=== PATIENT | male | born 1930 | race Caucasian/White ===

== ENCOUNTER 2017-07-03 06:51 | Observation (INO) | payer OTHER ==
[2017-06-19 15:21] VITALS: BMI 21.0
[2017-06-19 15:39] VITALS: Ht 167.6 cm; Wt 59.1 kg
[2017-07-03] VITALS (10 sets, daily range): BP systolic 125–221; BP diastolic 61–99; PULSE 57–88; TEMP 36.3–36.8; O2SAT 95–100
[~2017-07-03] VITALS: Ht 167.6 cm; Wt 59.1 kg
[~2017-07-03 06:51] MED LIST: ASPCH81X PO; CEFAZOLIN 2000 MG/60 ML D5W IV SCH; COLC0.6T54 PO; FEBU40TA PO; FERR1TAB13 PO; HYDR25CA PO; IMD/2 PO; LACTATED RINGER'S 1000ML 1,000 ML IV SCH; LISI20TA3 PO; METO50TA16 PO; NIFE30TA83 PO; PANT40TA PO
[2017-07-03] MEDS ORDERED: LIDOCAINE HCL 2% 2 ML VIAL (20MG/ML) ONE (07:32)
[2017-07-03] MEDS ORDERED: PROPOFOL IV EMULSION 10 MG/ML 20 ML VIAL IV ONE (07:32)
[2017-07-03] MEDS ORDERED: FENTANYL CITRATE INJ 50 MCG/1 ML 2 ML VIAL ONE (07:33)
[2017-07-03] MEDS ORDERED: BUPIVACAINE 0.5 % 5 MG/1 ML MPF 30ML VIAL ONE (08:54)
--- NOTE | 2017-07-03 08:58 | History & Physical Bridge Note ---
H&P Re-Evaluation Bridge Note: I have examined the patient, reviewed the History & Physical and in the interval since the performance of the History & Physical I have noted the following changes of clinical significance: Patient did not take his metoprolol or nifedipine this AM, BP 200's/90's, spoke with anesthesia, okay to continue with case. No other changes noted
[2017-07-03] MEDS ORDERED: FENTANYL CITRATE INJ 50 MCG/1 ML 2 ML VIAL IV PRN (09:00)
[2017-07-03] MEDS ORDERED: ATROPINE SULFATE 0.1 MG/ML 5ML SYR IV PRN (09:00)
[2017-07-03] MEDS ORDERED: EpHEDrine SULFATE INJ 50 MG/ML AMP IV PRN (09:00)
[2017-07-03] MEDS ORDERED: ONDANSETRON INJ 2 MG/ML 2 ML VIAL IV PRN (09:00)
[2017-07-03] MEDS ORDERED: METOPROLOL TARTRATE 1 MG/ML VIAL ONE (09:29)
[2017-07-03] MEDS ORDERED: LACTATED RINGER'S 1000ML 1,000 ML IV SCH (10:46)
--- NOTE | 2017-07-03 10:57 | [facility] Post Operative Brief Note ---
Immediate Operative Summary Operative Date Jul 03, 2017. Pre-Operative Diagnosis Left inguinal hernia Post-Operative Diagnosis Left inguinal hernia Procedure(s) Performed Open Left Inguinal Hernia Repair Surgeon Dr. Rodríguez Sales Team Leader Surgeon(s) Coni Nunez PA-C Estimated Blood Loss 4mL Findings large indirect hernia, polypropylene plug and patch sown into place. Specimens none per surgeon Anesthesia GETA Complication(s) None Disposition Recovery Room / PACU
[2017-07-03] MEDS ORDERED: KETOROLAC TROMETHAMINE 15 MG/ML VIAL IV PRN (11:00)
[2017-07-03] MEDS ORDERED: hydrOXYzine HCL 25 MG TAB PO PRN (11:00)
[2017-07-03] MEDS ORDERED: MoRPHine SULFATE 2 MG/ML CARP IV PRN (11:00)
[2017-07-03] MEDS ORDERED: PANTOprazole SOD 40 MG TAB PO PRN (11:00)
--- NOTE | 2017-07-03 11:04 | [facility] Operative Report ---
Operative Report Operative Date Jul 03, 2017. Pre-Operative Diagnosis Left inguinal hernia Post-Operative Diagnosis left inguinal hernia Procedure(s) Performed left inguinal hernia repair with mesh Surgeon Dr. Rodríguez Computer Hardware Technician Surgeon(s) Coni Nunez PA-C Estimated Blood Loss 4mL Findings large indirect hernia, polypropylene plug and patch sown into place. Specimens none per surgeon Drains None Anesthesia GETA Complication(s) None Disposition Recovery Room / PACU Indications 87 year old male with symptomatic left inguinal hernia, plan for left inguinal hernia repair. The risks of the procedure were discussed, all questions were answered, and the patient agreed to proceed with surgery as planned. Description of Procedure The patient was properly identified, consented, and taken to the operating room where he was placed in the supine position. General endotracheal anesthesia was induced. SCDs and a safety belt were placed. Preoperative antibiotics were administered. The patient's groins and abdomen were prepped and draped in the standard sterile fashion. A surgical timeout was performed and all parties were in agreement that this was the correct patient and procedure to be performed and we continued as planned. Local anesthetic in the form of 0.5% Marcaine was injected along the proposed incision site. An oblique incision was made in the left groin and deepened down to subcutaneous tissue with electrocautery. The aponeurosis of the external oblique muscle was cleared of investing tissue. A small incision was made in the aponeurosis of the external oblique muscle with a knife and lengthened under direct visualization with Metzenbaum scissors. Flaps were raised cephalad and caudad on the posterior portion of the external oblique. The ilioinguinal nerve was identified divided. The cord structures were circumferentially dissected and encircled with a Hailee drain. A moderate sized indirect hernia was noted. The hernia sac was dissected away from the cord structures, and reduced back into the abdomen. Hemostasis was achieved within the wound. The floor was patulous and weak. A polypropylene plug was placed into the large indirect defect and tacked into place with 0 nurolon sutures. A polypropylene patch mesh was sewn into place using interrupted 0 Nurolon sutures. It was secured to the pubic tubercle medially, the inguinal ligament caudad, and the conjoined tendon cephalad. The aponeurosis of the external oblique was then closed with a running 3-0 Vicryl suture. The internal ring was recreated by securing the tails and could accommodate the tip of the surgeons fifth digit. The wound was irrigated. Mine's fascia was reapproximated with interrupted 3-0 Vicryl suture. The skin was closed with a running 4-0 Monocryl subcuticular suture, and Dermabond was placed over the incision. The patient was extubated in the operating room and taken to the PACU for recovery without apparent incident. All sponge, instrument, and needle counts were correct at the conclusion of the procedure. The patient tolerated the procedure well. I attest to the content of the Intraoperative Record and any orders documented therein. Any exceptions are noted below.
[2017-07-03] MEDS ORDERED: NURSING VERBAL MED ORDER ONE ×3 (11:12→21:15)
[2017-07-03] MEDS ORDERED: IV FLUIDS COMPLETED PRN (11:15)
[2017-07-03] MEDS ORDERED: HydrALAZINE HCL 20 MG/ML VIAL ONE (11:21)
[2017-07-03] MEDS ORDERED: HydrALAZINE HCL 20 MG/ML VIAL IV. ONE (11:45)
--- NOTE | 2017-07-03 12:13 | Anesthesiology Progress Note ---
Anesthesia Post Op Note Date & Time Jul 03, 2017 at 12:13 Vital Signs Pain Intensity: 1 Vital Signs Past 12 Hours Date Time Temp Pulse Resp B/P (MAP) Pulse Ox O2 Delivery O2 Flow Rate FiO2 07/03/17 12:10 36.3 59 16 177/90 100 Nasal Cannula 2 07/03/17 11:55 36.3 57 16 206/91 100 Nasal Cannula 2 07/03/17 11:45 56 16 199/84 100 Nasal Cannula 2 07/03/17 11:35 57 16 204/94 100 Nasal Cannula 3 07/03/17 11:25 58 16 212/96 100 Nasal Cannula 3 07/03/17 11:15 58 16 214/85 100 Oxymask 10 07/03/17 11:05 56 16 182/90 100 Oxymask 10 07/03/17 10:55 55 16 191/90 100 Oxymask 10 07/03/17 10:49 36.5 56 16 190/90 100 Oxymask 10 07/03/17 07:36 36.6 57 18 221/99 (139) 99 Room Air Notes Mental Status: alert / awake / arousable, participated in evaluation Pt Amnestic to Procedure: Yes Nausea / Vomiting: adequately controlled Pain: adequately controlled Airway Patency, RR, SpO2: stable & adequate BP & HR: stable & adequate Hydration State: stable & adequate Anesthetic Complications: no major complications apparent
[2017-07-03] MEDS ORDERED: HydrALAZINE HCL 20 MG/ML VIAL IV. STA (13:41)
[2017-07-03] MEDS ORDERED: HydrALAZINE HCL 20 MG/ML VIAL IV. PRN (13:45)
[2017-07-03] MEDS ORDERED: COLCHICINE 0.6 MG TAB PO SCH (15:00)
[2017-07-03] MEDS ORDERED: LISINOPRIL 20 MG TAB PO ONE (16:00)
[2017-07-03] MEDS: OXYCODONE/ACETAMINOPHEN 5-325 TAB PO PRN (19:07)
[2017-07-03] MEDS: METOPROLOL TARTRATE 50 MG TAB PO SCH (20:28)
--- NOTE | 2017-07-03 20:53 | History and Physical ---
History & Physical Date & Time of Service: Jul 03, 2017 at 20:43 Chief Complaint: Left Inguinal Hernia Primary Care Physician: Elias Mcguire M.D. History of Present Illness Source: patient, family, clinic records, hospital records 87 year old very pleasant male with history of HTN, CKD3, BPH, Gout and other problems noted below, s/p Left Inguinal Hernia Repair. Patient was noted to be hypertensive since this morning. On my exam, patient seen sitting up in bed, comfortable, in good spirits. Denies headache, dizziness, nausea, chest pain, dyspnea, palpitations. Reports some pain on the incision site. Otherwise, no other symptoms. Family History HTN- mother and siblings Social History Smoking Status: Former Smoker Alcohol Use: none Drug Use: none Marital Status: Housing status: lives with family Allergies Coded Allergies: NO KNOWN DRUG ALLERGIES (Verified Allergy, Unknown, none, 07/03/17) Home Medications Scheduled Aspirin (Aspirin Chewable), 81 MG PO 2XWK Colchicine (Colchicine), 0.6 MG PO 3XWK Febuxostat (Uloric), 1 TAB PO QAM Ferrous Sulfate (Kp Ferrous Sulfate), 1 TAB PO QAM Lisinopril (Prinivil), 20 MG PO QAM Metoprolol Tartrate (Lopressor) (Lopressor), 50 MG PO BID Nifedipine Ext Rel (Procardia Xl Ext Rel), 30 MG PO QAM Scheduled PRN Hydroxyzine Pamoate (Vistaril), 1 CAP PO TID PRN for Itching Loperamide Hcl (Imodium), 2 MG PO DIRECTED PRN for Diarrhea Pantoprazole (Protonix), 40 MG PO DAILY PRN for Indigestion Review of Systems Constitutional- no fever; no weight loss Eyes- no acute visual changes ENT- no sinus drainage; no pharyngitis Pulmonary- no cough, no wheezing, no shortness of breath Cardiac- no chest pain, no palpitations, no orthopnea, no dependent edema GI- no nausea, no vomiting, no diarrhea, no melena, no hematochezia - no dysuria, no hematuria Musculoskeletal- no arthralgias, no myalgias Derm- no rashes, no new skin lesions, no changing skin lesions Hematologic- no unusual bruising, no unusual bleeding Lymphatics- no adenopathy Endocrine- no polyuria or polydipsia; no heat or cold intolerance Neuro- no headaches, no focal neurologic symptoms Psych- no anxiety, no depression Physical Exam Vital Signs Date Time Temp Pulse Resp B/P (MAP) Pulse Ox O2 Delivery O2 Flow Rate FiO2 07/03/17 19:22 36.8 88 17 173/69 (103) 95 Room Air 07/03/17 19:15 Room Air 07/03/17 16:32 97 Nasal Cannula 2.0 07/03/17 16:03 74 16 153/71 (98) 97 Nasal Cannula 2.0 07/03/17 14:45 70 15 136/63 (87) 100 07/03/17 13:45 36.3 60 16 192/83 (119) 100 Nasal Cannula 2.0 07/03/17 13:10 61 15 202/87 (125) 100 Nasal Cannula 2.0 07/03/17 12:40 100 Nasal Cannula 2.0 07/03/17 12:40 36.4 59 18 191/70 (110) 100 Nasal Cannula 2.0 07/03/17 12:40 Nasal Cannula 2.0 07/03/17 12:10 36.3 59 16 177/90 100 Nasal Cannula 2 07/03/17 11:55 36.3 57 16 206/91 100 Nasal Cannula 2 07/03/17 11:45 56 16 199/84 100 Nasal Cannula 2 07/03/17 11:35 57 16 204/94 100 Nasal Cannula 3 07/03/17 11:25 58 16 212/96 100 Nasal Cannula 3 07/03/17 11:15 58 16 214/85 100 Oxymask 10 07/03/17 11:05 56 16 182/90 100 Oxymask 10 07/03/17 10:55 55 16 191/90 100 Oxymask 10 07/03/17 10:49 36.5 56 16 190/90 100 Oxymask 10 07/03/17 07:36 36.6 57 18 221/99 (139) 99 Room Air General Appearance: WD/WN, no apparent distress Head: normocephalic, atraumatic Eyes: normal inspection, EOMI, sclerae normal ENT: normal ENT inspection, hearing grossly normal, pharynx normal Neck: supple, no adenopathy, thyroid normal, no JVD, trachea midline Respiratory/Chest: chest non-tender, lungs clear, normal breath sounds, no respiratory distress, no accessory muscle use Cardiovascular: regular rate, rhythm, no edema, no JVD, no murmur Abdomen/GI: normal bowel sounds, non tender, soft, + splenomegaly (incision site: no signs of infection, no discharge noted), + pertinent finding Back: normal inspection, no CVA tenderness Extremities/Musculoskelatal: normal inspection, no calf tenderness, normal capillary refill, no pedal edema, non-tender Neurologic/Psych: receiving associate II-XII nml as tested, no motor/sensory deficits, alert, normal mood/affect, oriented x 3 Skin: normal color, warm/dry, no rash Lymphatic: no adenopathy Diagnostics Laboratory Results Results Past 24 Hours Test 07/03/17 07:39 Range/Units Activated Partial Thromboplast Time 24.7 21.0-31.0 SECONDS Partial Thromboplastin Ratio 1.0 Impression Assessment and Plan 87 year old very pleasant male with history of HTN, CKD3, BPH, Gout and other problems noted below, s/p Left Inguinal Hernia Repair. HYPERTENSIVE URGENCY asymptomatic likely from not being able to take BP medications this morning, in addition to post operative stress and pain on the surgical site -- IV Hydralazine ordered and PRN for systolic bp > 160 -- usual Lisinopril and Metoprolol PO resumed -- will monitor S/P LEFT INGUINAL HERNIA REPAIR -- appears stable otherwise monitor Hg and PRP CKD 3 - PRP tomorrow GOUT - continue Uloric and Colchicine HISTORY OF ANEMIA - monitor Hg Thank you for this consultation. We will follow the patient with you during their hospital stay. You [facility] via pager @ . VTE Prophylaxis VTE Risk Assessment Done? Y/N: Yes Risk Level: Moderate
[2017-07-04] VITALS (9 sets, daily range): BP systolic 119–182; BP diastolic 61–89; PULSE 67–69; TEMP 36.5–36.9; O2SAT 91–94
--- NOTE | 2017-07-04 08:34 | Surgery Progress Note ---
Surgery Progress Note Date of Service Jul 04, 2017. Subjective 87 year old POD#1 s/p open left inguinal hernia repair. Doing well this morning , BP controlled yesterday with IV hydralazine. Scheduled to get all home meds this morning. Eating breakfast, tolerating diet, urinating without difficulty. Pain controlled with meds, ambulating. Wants to go home. Objective Vital Signs: Date Time Temp Pulse Resp B/P (MAP) Pulse Ox O2 Delivery O2 Flow Rate FiO2 07/04/17 07:30 Room Air 07/04/17 07:17 69 20 178/74 (108) 91 Room Air 07/04/17 04:00 36.9 68 16 127/65 (85) 93 Room Air 07/03/17 23:00 36.5 68 18 132/64 (86) 95 Room Air 07/03/17 20:20 81 125/61 (82) 07/03/17 19:22 36.8 88 17 173/69 (103) 95 Room Air 07/03/17 19:15 Room Air 07/03/17 16:32 97 Nasal Cannula 2.0 07/03/17 16:03 74 16 153/71 (98) 97 Nasal Cannula 2.0 07/03/17 14:45 70 15 136/63 (87) 100 07/03/17 13:45 36.3 60 16 192/83 (119) 100 Nasal Cannula 2.0 07/03/17 13:10 61 15 202/87 (125) 100 Nasal Cannula 2.0 07/03/17 12:40 100 Nasal Cannula 2.0 07/03/17 12:40 36.4 59 18 191/70 (110) 100 Nasal Cannula 2.0 07/03/17 12:40 Nasal Cannula 2.0 07/03/17 12:10 36.3 59 16 177/90 100 Nasal Cannula 2 07/03/17 11:55 36.3 57 16 206/91 100 Nasal Cannula 2 07/03/17 11:45 56 16 199/84 100 Nasal Cannula 2 07/03/17 11:35 57 16 204/94 100 Nasal Cannula 3 07/03/17 11:25 58 16 212/96 100 Nasal Cannula 3 07/03/17 11:15 58 16 214/85 100 Oxymask 10 07/03/17 11:05 56 16 182/90 100 Oxymask 10 07/03/17 10:55 55 16 191/90 100 Oxymask 10 07/03/17 10:49 36.5 56 16 190/90 100 Oxymask 10 Abdomen: normal bowel sounds, non tender, non distended, soft, no organomegaly , no pulsatile mass Incision(s): clean, dry, intact, no erythema, no drainage Assessment & Plan POD#1 LIH repair, doing well. Plan: discharge to home when bp okay, likely around lunchtime wound care instructions, activity limitations reviewed follow up in 1-2 weeks in clinic return precautions given call clinic with questions or concerns
[2017-07-04] MEDS ORDERED: FEBUXOSTAT 40 MG TAB PO SCH (09:00)
[2017-07-04] MEDS ORDERED: FERROUS SULFATE 325 MG TAB PO SCH (09:00)
[2017-07-04] MEDS ORDERED: LISINOPRIL 20 MG TAB PO SCH (09:00)
[2017-07-04] MEDS ORDERED: NIFEdipine 30 MG CR TAB PO SCH (09:00)
[2017-07-04] MEDS: OXYCODONE/ACETAMINOPHEN 5-325 TAB PO PRN (09:04)
[2017-07-04] MEDS: METOPROLOL TARTRATE 50 MG TAB PO SCH (09:06)
[2017-07-04] MEDS ORDERED: OXYC-57 PO (11:03)
--- NOTE | 2017-07-04 11:06 | Discharge Instructions ---
Discharge Instructions Date of Service Jul 04, 2017. Admission Reason for Admission: Left Inguinal Hernia Discharge Discharge Diagnosis / Problem: Left Inguinal Hernia Discharge Goals Goal(s): Decrease discomfort, Improve function Activity Recommendations Activity Limitations: as noted below Lifting Limitations: no more than 10 pounds Exercise/Sports Limitations: until after follow-up appointment May Resume Sexual Activity: after follow-up appointment Shower/Bathe: tomorrow Driving or Machine Use: resume 1 day after discharge . Instructions / Follow-Up Instructions / Follow-Up You may resume home medications as prescribed. Please follow-up with Dr. Rodríguez in the office in 1-2 weeks. Please call the office at [phone] to make a follow-up appointment if you do not have one already. Please call the office with any questions or concerns. Current Hospital Diet Patient's current hospital diet: Regular Diet Discharge Diet Recommended Diet: Regular Diet Procedures Procedures Performed: Open Left Inguinal Hernia Repair Pending Studies Studies pending at discharge: no Medical Emergencies . Who to Call and When: Medical Emergencies: If at any time you feel your situation is an emergency, please call 911 immediately. . Non-Emergent Contact Non-Emergency issues call your: Primary Care Provider, Surgeon Call Non-Emergent contact if: temperature is above 101.5, your pain is not controlled, wound has increased drainage, wound has increased redness . "Provider Documentation" section prepared by Coni Nunez. . VTE Core Measure Inpt VTE Proph given/why not?: SCD's [place] Drug Monitoring Program Search Results: patient reviewed within database, no issues identified
--- NOTE | 2017-07-04 11:07 | Anesthesiology Progress Note ---
Anesthesia Post Op Note Date & Time Jul 04, 2017 at 11:07 Vital Signs Pain Intensity: 6.0 Vital Signs Past 12 Hours Date Time Temp Pulse Resp B/P (MAP) Pulse Ox O2 Delivery O2 Flow Rate FiO2 07/04/17 09:48 159/89 (112) 07/04/17 09:20 36.8 07/04/17 07:30 Room Air 07/04/17 07:17 69 20 178/74 (108) 91 Room Air 07/04/17 04:00 36.9 68 16 127/65 (85) 93 Room Air Notes Mental Status: alert / awake / arousable, participated in evaluation Pt Amnestic to Procedure: Yes Nausea / Vomiting: adequately controlled Pain: adequately controlled Airway Patency, RR, SpO2: stable & adequate BP & HR: stable & adequate Hydration State: stable & adequate Anesthetic Complications: no major complications apparent
--- NOTE | 2017-07-04 14:22 | Progress Note ---
Medicine Progress Note Date & Time of Visit: Jul 04, 2017 at 14:16. Subjective seen sitting up in bed, comfortable, in good spirits denies headache, dizziness, chest pain, palpitations denies abdominal pain, nausea no other symptoms states he feels fine and would like to be discharged today Objective Last 8 Hrs Date Time Temp Pulse Resp B/P (MAP) Pulse Ox O2 Delivery O2 Flow Rate FiO2 07/04/17 14:08 36.5 67 18 94 Room Air 07/04/17 14:03 119/76 (90) 07/04/17 13:00 182/79 (113) 07/04/17 11:40 36.5 67 18 147/69 (95) 94 Room Air 07/04/17 11:24 36.6 69 18 152/61 (91) 93 Room Air 07/04/17 09:48 159/89 (112) 07/04/17 09:20 36.8 07/04/17 07:30 Room Air 07/04/17 07:17 69 20 178/74 (108) 91 Room Air Physical Exam: General- oriented x 3, not in distress, speaks in sentences with no effort Eyes- EOMI, anicteric Neck- supple, no JVD Lungs- clear to auscultation bilaterally Heart- regular rhythm; no murmur, normal rate Abdomen- normal bowel sounds, soft, nontender surgical incision site on LLQ: well opposed, no signs of infection or discharge Extremities- no pretibial edema, no calf tenderness Neuro- alert, oriented x 3; no gross focal deficits Skin- warm & dry Assessment & Plan 87 year old very pleasant male with history of HTN, CKD3, BPH, Gout and other problems noted below, s/p Left Inguinal Hernia Repair. HYPERTENSIVE URGENCY - BP improving was elevated again this afternoon, but asymptomatic given IV Hydralazine, BP improved - discussed BP medications with patient and his apparently takes Nifedipine, Metoprolol, Lisinopril - 1 dose of each daily systolic BP usually in the 150s advised to increase Lisinopril to 2 tabs po daily, [facility], and will also set up home health services which the patient and his was agreeable with - ok for discharge today after ambulating in the halls and without problems S/P LEFT INGUINAL HERNIA REPAIR - further management per Surgery SVC CKD 3 - ff up with PCP GOUT - continue Uloric and Colchicine HISTORY OF ANEMIA - ff up as outpatient Thank you for this consultation. We will follow the patient with you during their hospital stay. You can reach a member of the [facility] Hospitalist Team 22/04 via pager @ [phone]. Current Inpatient Medications: Current Inpatient Medications Medications (Trade) Dose Ordered Sig/Blanquita Route Start Time Stop Time Status Last Admin Dose Admin Morphine Sulfate (MoRPHine SULFATE INJ) 2 mg Q1H PRN IV 07/03/17 11:00 07/17/17 10:59 Ketorolac Tromethamine (Toradol Inj) 15 mg Q6H PRN IV 07/03/17 11:00 07/08/17 10:59 07/03/17 14:27 15 MG Oxycodone/ Acetaminophen (Percocet 5-325mg Tab) 1 tab Q4H PRN PO 07/03/17 11:00 07/17/17 10:59 07/04/17 09:04 1 TAB Lisinopril (Zestril Tab) 20 mg QAM PO 07/04/17 09:00 08/03/17 08:59 07/04/17 09:07 20 MG Metoprolol Tartrate (Lopressor Tab) 50 mg BID PO 07/03/17 21:00 08/02/17 20:59 07/04/17 09:06 50 MG Pantoprazole Sodium (Protonix Tab) 40 mg DAILY PRN PO 07/03/17 11:00 08/02/17 10:59 Febuxostat (Uloric) 40 mg QAM PO 07/04/17 09:00 08/03/17 08:59 07/04/17 09:07 40 MG Ferrous Sulfate (Feosol Tab) 325 mg QAM PO 07/04/17 09:00 08/03/17 08:59 07/04/17 09:38 325 MG Hydroxyzine HCl (Vistaril Tab) 25 mg TID PRN PO 07/03/17 11:00 08/02/17 10:59 Miscellaneous (Iv Fluids Completed) 1 ea PRN PRN N/A 07/03/17 11:15 07/03/18 11:14 Hydralazine HCl (HydrALAZINE INJ) 10 mg Q6H PRN IV. 07/03/17 13:45 08/02/17 13:44 07/04/17 13:06 10 MG Colchicine (Colchicine Tab) 0.6 mg MoWeFr@0900 PO 07/03/17 15:00 08/02/17 14:59 07/03/17 16:02 0.6 MG
--- NOTE | 2017-07-08 10:00 | Discharge Summary ---
Discharge Summary Date of Service Jul 08, 2017. Admission Date/Reason Jul 03, 2017 at 10:53 Left Inguinal Hernia. Discharge Date/Disposition Jul 04, 2017 Home Diagnosis Principal Diagnosis: Left Inguinal Hernia Secondary Diagnoses/Problems: 1. Hypertensive Urgency 2. CKD Stage 3 3. Gout Procedure(s) Performed Open Left Inguinal Hernia Repair- Plug and Patch with Dr. Rodríguez Consultations Hospitalist Team for hypertension Admission Physical Exam As per Admitting History & Physical. Hospital Course Mr. Blanco is a pleasant 87-year-old male with past medical history significant for hypertension, CKD stage 3, BPH, gout who presented to [facility] for scheduled open left inguinal hernia repair with Dr. Rodríguez. Morning of surgery patient took only 1 blood pressure medication- Lisinopril, patient did not take Metoprolol or nifedipine. Patient was admitted for 23 hour observation post- operatively. Post-operatively patient did well- pain controlled, tolerated diet , surgical incision clean, dry, and intact. Hospitalist service was consulted for elevated blood pressure. Patient was given his home meds and a few doses of IV hydralazine. His blood pressure was well controlled at the time of discharge. Patient was deemed suitable for discharge on POD #1. Patient's Lisinopril was increased to 2 tabs PO daily. Patient to follow-up with [facility] for blood pressure. Patient to follow-up with Dr. Rodríguez in Gen Surg clinic in 1-2 weeks. Discharge Instructions Please refer to the electronic Patient Visit Report (Discharge Instructions) for additional information.
== END 2017-07-04 14:50 | disposition home or self-care (01) ==
LOC: C.ACU 06:51 → C.MSN 10:53 → ENRESERV 11:13
PROVIDERS: ADMIT Surgery; ATTEND Surgery
DX: K40.90 Unilateral inguinal hernia, without obstruction or gangrene, not specified as recurrent (principal); I16.0 Hypertensive urgency; I12.9 Hypertensive chronic kidney disease with stage 1 through stage 4 chronic kidney disease, or unspecified chronic kidney disease; N18.3 Chronic kidney disease, stage 3 (moderate); M10.9 Gout, unspecified; N40.0 Benign prostatic hyperplasia without lower urinary tract symptoms; Z87.891 Personal history of nicotine dependence; Z79.82 Long term (current) use of aspirin; Z82.3 Family history of stroke; Z82.49 Family history of ischemic heart disease and other diseases of the circulatory system

== ENCOUNTER 2017-12-09 13:01 | Emergency (ER) | payer OTHER ==
[~2017-12-09] VITALS: Ht 170.2 cm; Wt 62.0 kg
[2017-12-09 13:18] VITALS: TEMP 36.6; Ht 170.2 cm; Wt 62.0 kg
--- NOTE | 2017-12-09 13:54 | DIAGNOSTIC IMAGING REPORT ---
LEFT ANKLE 3 VIEWS CLINICAL HISTORY: Left ankle injury. FINDINGS: 3 views of the left ankle are obtained. No prior studies are available for comparison at the time of dictation. The skeletal structures are osteopenic. No fracture is seen. The ankle mortise is intact. No joint effusion is identified. Soft tissue edema is present around the ankle. There is advanced atherosclerotic calcification of the regional arteries. IMPRESSION: Soft tissue swelling with no radiographic evidence of left ankle fracture. Electronically signed by: Guillermo Galvez M.D. 12/09/2017 1:52 PM Dictated Date/Time: 12/09/2017 1:51 PM
[2017-12-09] MEDS ORDERED: HYDR25CA PO (14:47)
[2017-12-09] MEDS ORDERED: IMD/2 PO (14:47)
[2017-12-09] MEDS ORDERED: LISI20TA3 PO (14:47)
[2017-12-09] MEDS ORDERED: METO50TA16 PO (14:47)
[2017-12-09] MEDS ORDERED: COLC0.6T54 PO (14:47)
[2017-12-09] MEDS ORDERED: ASPCH81X PO (14:47)
[2017-12-09] MEDS ORDERED: PANT40TA PO (14:47)
[2017-12-09] MEDS ORDERED: FERR1TAB13 PO (14:47)
[2017-12-09] MEDS ORDERED: NIFE30TA83 PO (14:47)
[2017-12-09] MEDS ORDERED: FEBU40TA PO (14:48)
[2017-12-09 14:55] VITALS: BP 131/71; PULSE 61; O2SAT 98
--- NOTE | 2017-12-09 19:26 | EMERGENCY ROOM VISIT NOTE ---
ED Visit Note First contact with patient: 13:22 CHIEF COMPLAINT: Ankle pain HISTORY OF PRESENT ILLNESS: This 87-year-old male patient presents to the emergency department after sustaining an injury to the left ankle and foot with a twisting, inversion motion 2 days ago. The patient complains of pain along the outside of the ankle. The patient does not have pain of the foot. The patient rates the pain as minimal and 1/10. The patient is able to bear weight on the foot. Constant pain, worse with movement, weight bearing, and the dependent position. No knee pain, the patient is able to move their toes. No numbness or weakness of the foot, no laceration. The patient has not had a previous fracture to this ankle. The patient has taken nothing for the pain. The patient denies any other injury. REVIEW OF SYSTEMS: A 6 system review of systems was completed with positives and pertinent negatives listed in the HPI. ALLERGIES: No known allergies MEDICATIONS: See EMR PMH: Lives at home with family SOCIAL HISTORY: See EMR PHYSICAL EXAM: Vital Signs: Reviewed Nurse's notes, vital signs stable. GENERAL : Pleasant white male, no acute distress, but appears in pain, well-developed, well-nourished. MENTAL STATUS: Alert, oriented to person place and time, and cooperative. MUSCULOSKELETAL: The left ankle is swollen and tender over the lateral malleolus, but the skin is intact and there is no ligamentous instability. There is no fifth metatarsal tenderness. There is no tenderness over the rest of the foot. There is no calf or tibia/fibular tenderness. There is no visual deformity. The foot and toes are warm and well-perfused. Dorsalis pedis pulse 2+. Sensation to pain and light touch is intact. Capillary refill less than 2 seconds. LEFT ANKLE 3 VIEWS CLINICAL HISTORY: Left ankle injury. FINDINGS: 3 views of the left ankle are obtained. No prior studies are available for comparison at the time of dictation. The skeletal structures are osteopenic. No fracture is seen. The ankle mortise is intact. No joint effusion is identified. Soft tissue edema is present around the ankle. There is advanced atherosclerotic calcification of the regional arteries. IMPRESSION: Soft tissue swelling with no radiographic evidence of left ankle fracture. EMERGENCY DEPARTMENT COURSE: Physical exam and history were performed. Nursing notes and EMR were reviewed. The patient has left ankle pain for the past few days after falling at home. The patient did not suffer additional injury in the fall. Much of his discomfort is from the swelling of the left ankle. He does not have gross deformity or laceration. X-ray was obtained and reviewed by myself and radiology as showing no acute fracture. I discussed options of care with the patient and he thinks he will do well with an Pepe wrap. The patient does have a walker at home as well as a cane that he likes to ambulate with. The patient is to continue using this. He is to follow with his primary care physician or orthopedist with any ongoing or persisting symptoms. He was pleased with this plan and voiced understanding. He was discharged home under the care of his . Current/Historical Medications Scheduled Aspirin (Aspirin Chewable), 81 MG PO 2XWK Colchicine (Colchicine), 0.6 MG PO 3XWK Febuxostat (Uloric), 1 TAB PO QAM Ferrous Sulfate (Kp Ferrous Sulfate), 1 TAB PO QAM Lisinopril (Prinivil), 20 MG PO QAM Metoprolol Tartrate (Lopressor) (Lopressor), 50 MG PO BID Nifedipine Ext Rel (Procardia Xl Ext Rel), 30 MG PO QAM Scheduled PRN Hydroxyzine Pamoate (Vistaril), 1 CAP PO TID PRN for Itching Loperamide Hcl (Imodium), 2 MG PO DIRECTED PRN for Diarrhea Pantoprazole (Protonix), 40 MG PO DAILY PRN for Indigestion Allergies Coded Allergies: NO KNOWN DRUG ALLERGIES (Verified Allergy, Unknown, none, 07/03/17) Vital Signs Date Time Temp Pulse Resp B/P (MAP) Pulse Ox O2 Delivery O2 Flow Rate FiO2 12/09/17 14:55 61 18 131/71 98 12/09/17 13:18 36.6 59 20 137/67 97 Room Air Departure Information Impression Primary Impression: Injury of left ankle Dispostion Home / Self-Care Condition GOOD Forms HOME CARE DOCUMENTATION FORM, IMPORTANT VISIT INFORMATION Patient Instructions My [facility] Additional Instructions You were seen and evaluated today on an emergency basis only. This is not a substitute for, or an effort to provide, complete comprehensive medical care. It is not possible to recognize and treat all injuries or illnesses in a single emergency department visit. For this reason it is recommended that you followup with your primary care physician next week for recheck of your condition. Use the Pepe wrap for the next 5-7 days. You may take this off and put it back on as needed. Take every precaution to prevent falling. Use your walker from home. You are welcome to return to the emergency department anytime with new, worsening, or concerning symptoms.
== END 2017-12-09 14:51 | disposition home or self-care (01) ==
LOC: C.EDB 13:04 → C.EDD 14:51
DX: S99.912A Unspecified injury of left ankle, initial encounter (principal); X50.1XXA Overexertion from prolonged static or awkward postures, initial encounter; Z79.82 Long term (current) use of aspirin; Z79.899 Other long term (current) drug therapy

== ENCOUNTER 2018-05-13 11:26 | Inpatient (IN) | payer OTHER ==
[~2018-05-13] VITALS: Ht 170.2 cm; Wt 57.7 kg
[~2018-05-13 11:26] MED LIST changes: -CEFAZOLIN 2000 MG/60 ML D5W IV SCH; -LACTATED RINGER'S 1000ML 1,000 ML IV SCH; +OMEP20CA9 PO; -PANT40TA PO
[2018-05-13 11:58] LABS: BASO % 0.4 %; BASO ABS # 0.03 K/uL (0-0.2); EOS % 4.2 %; EOS ABS # 0.32 K/uL (0-0.5); HEMATOCRIT 32.5 % (42-52); IG# 0.01 K/uL (0.00-0.02); LYMPH % 13.7 %; LYMPH ABS # 1.03 K/uL (1.2-3.4); MEAN CELL VOLUME 88.8 fL (80-100); MEAN CORPUSCULAR HEMOGLOBIN 30.1 pg (25-34); MEAN CORPUSCULAR HGB CONC 33.8 g/dl (32-36); MEAN PLATELET VOLUME 9.5 fL (7.4-10.4); MONO ABS # 0.45 K/uL (0.11-0.59); NEUT % 75.6 %; NEUT ABS # 5.69 K/uL (1.4-6.5); PLATELET COUNT 212 K/uL (130-400); RED CELL DISTRIBUTION WIDTH CV 12.9 % (11.5-14.5); RED CELL DISTRIBUTION WIDTH SD 41.7 fL (36.4-46.3); WHITE BLOOD COUNT 7.53 K/uL (4.8-10.8)
--- NOTE | 2018-05-13 12:27 | DIAGNOSTIC IMAGING REPORT ---
HEAD WITHOUT CONTRAST (CT) CLINICAL HISTORY: 88 years-old Male presenting with fall . TECHNIQUE: Multidetector CT imaging of the head was performed without the use of intravenous contrast. IV contrast: None. A dose lowering technique was used consistent with the principles of ALARA (as low as reasonably achievable). COMPARISON: None. CT DOSE (mGy.cm): The estimated cumulative dose is 898.33. FINDINGS: [employer] topogram: Unremarkable. Proportional ventricular and sulcal prominence, likely age-related parenchymal volume loss. Old infarct in the left frontal lobe. No mass effect or midline shift. No hemorrhage or acute territorial infarct. No extra-axial fluid collection. Paranasal sinuses and mastoid air cells clear. Calvarium intact. IMPRESSION: 1. No acute intracranial abnormality. 2. Old left frontal lobe infarct. Electronically signed by: Jj Wheatley M.D. 05/13/2018 12:26 PM Dictated Date/Time: 05/13/2018 12:23 PM
[2018-05-13 12:28] LABS: ALBUMIN 3.5 gm/dl (3.4-5.0); CALCIUM 9.1 mg/dl (8.5-10.1); CREATININE 2.6 mg/dl (0.60-1.40); POTASSIUM 4.9 mmol/L (3.5-5.1)
--- NOTE | 2018-05-13 12:32 | DIAGNOSTIC IMAGING REPORT ---
CERVICAL SPINE W/O CLINICAL HISTORY: 88 years-old Male presenting with fall head and neck pain. TECHNIQUE: Multidetector CT of the cervical spine was performed without the use of intravenous contrast. IV contrast: None. A dose lowering technique was used consistent with the principles of ALARA (as low as reasonably achievable). COMPARISON: None. CT DOSE (mGy.cm): The estimated cumulative dose is 898.33 mGy.cm. FINDINGS: Help [employer]k Support topogram: Unremarkable. Exaggerated cervical lordosis. Mild anterior vertebral body height loss of C4 likely degenerative related. Remaining vertebral bodies demonstrate normal height and alignment. Intervertebral disc height loss noted from C3-4 through C6-7, where there are disc osteophyte complexes. Mild posterior bony spurring noted at several levels. Facet arthropathy and uncovertebral hypertrophy result in varying degrees of osseous neural foraminal narrowing from C3-4 through C6-7. No acute fracture or subluxation. Pleural parenchymal scarring at the apices greater on the right. Few nodular opacities at the right apex. Atherosclerosis. Paraspinal musculature within normal limits. Dominant left thyroid lobe nodule. IMPRESSION: 1. No acute osseous injury of the cervical spine. 2. Multilevel degenerative changes. 3. Pleural parenchymal scarring at the lung apices with few nodular opacities at the right apex, indeterminate. Electronically signed by: Jj Wheatley M.D. 05/13/2018 12:31 PM Dictated Date/Time: 05/13/2018 12:27 PM
[2018-05-13] MEDS ORDERED: SODIUM CHLORIDE 0.9% 1000ML 1,000 ML IV STA (12:38)
[2018-05-13 14:18] VITALS: O2SAT 98
[2018-05-13] MEDS ORDERED: ACETAMINOPHEN 325 MG TAB PO PRN (15:00)
[2018-05-13] MEDS ORDERED: ONDANSETRON INJ 2 MG/ML 2 ML VIAL IV PRN (15:00)
[2018-05-13] MEDS ORDERED: LCTX PO (15:25)
[2018-05-13] MEDS ORDERED: LISI10TA PO (15:31)
[2018-05-13 15:43] LABS: INR 1.1 (0.9-1.1)
[2018-05-13 16:37] VITALS: BP 161/83; PULSE 55; TEMP 36.4; O2SAT 95
--- NOTE | 2018-05-13 16:47 | History and Physical ---
History & Physical Date & Time of Service: May 13, 2018 ~ 14:30 Chief Complaint: Fall, Neck Pain Primary Care Physician: Kendall Barraza History of Present Illness 88-year-old male who presents to the ED after a fall at home. Patient reports he was getting ready to go camping and about to walk out his front door when his legs suddenly became weak and he fell to the ground. He denies loss of consciousness or striking his head. No associated chest pain, shortness of breath, lightheadedness, dizziness. Patient reports he has been having neck pain for the past couple months. He was admitted to the [facility] in [place] in March for neck pain and was told he has arthritis. Patient reports he occasionally continues to get neck spasms. He reports that he has had a spasm today before falling to the ground and is unsure if that is why he fell. Patient reports he has had a poor appetite for the past couple of years. When he was recently admitted, he was instructed to drink boost 3 times a day however he has not been doing so. He admits he does not drink enough fluid. He has intermittent diarrhea based upon the foods he eats, this is unchanged from baseline. He denies abdominal pain, nausea, vomiting. No fevers or chills. He denies any urinary symptoms. In the ED, patient was found to have an WILFREDO with creatinine of 2.6 (baseline runs in the mid ones), positive orthostatic vitals, and urinary retention. Patient was given IVF. Past Medical/Surgical History Medical Problems: (1) BPH (benign prostatic hyperplasia) Status: Chronic (2) CKD (chronic kidney disease), stage III Status: Chronic (3) CVA (cerebral vascular accident) Status: Chronic (4) GERD (gastroesophageal reflux disease) Status: Chronic (5) Gout Status: Chronic (6) Hypertension Status: Chronic Surgical Problems: (1) H/O inguinal hernia repair Status: Chronic Family History Noncontributory secondary to patient's advanced age Social History Smoking Status: Former Smoker Alcohol Use: none Marital Status: Housing status: lives with family Immunizations History of Tetanus Vaccine?: Yes Tetanus Immunization Date: Apr 16, 2014 History of Pneumococcal: Yes Pneumococcal Date: Jan 06, 2002 Allergies Coded Allergies: NO KNOWN DRUG ALLERGIES (Verified Allergy, Unknown, none, 05/13/18) Home Medications Scheduled Aspirin (Aspirin Chewable), 81 MG PO DAILY Colchicine (Colchicine), 0.6 MG PO 3XWK Febuxostat (Uloric), 1 TAB PO BID Ferrous Sulfate (Kp Ferrous Sulfate), 1 TAB PO BID Lactobacillus Acidophilus (Lactinex), 1 TAB PO BID Metoprolol Tartrate (Lopressor) (Lopressor), 50 MG PO BID Nifedipine Ext Rel (Procardia Xl Ext Rel), 30 MG PO DAILY Omeprazole (Prilosec), 20 MG PO DAILY [Boost Nutritional Drink], 1 BOX PO TID Scheduled PRN Loperamide Hcl (Imodium), 2 MG PO DIRECTED PRN for Diarrhea Review of Systems ROS per HPI, all other systems reviewed and negative Physical Exam Vital Signs Date Time Temp Pulse Resp B/P (MAP) Pulse Ox O2 Delivery O2 Flow Rate FiO2 05/13/18 15:10 68 123/72 70 112/78 90 98/54 05/13/18 14:18 78 20 125/60 98 Room Air 05/13/18 12:26 51 16 125/63 96 Room Air 05/13/18 11:31 36.6 51 20 133/59 98 Room Air General Appearance: no apparent distress, + thin Head: normocephalic, atraumatic Eyes: normal inspection, EOMI, sclerae normal ENT: hearing grossly normal, + pertinent finding (Mucous membranes dry) Neck: supple, no JVD, trachea midline Respiratory/Chest: lungs clear, normal breath sounds, no respiratory distress Cardiovascular: regular rate, rhythm, no edema, normal peripheral pulses Abdomen/GI: normal bowel sounds, non tender, soft, no organomegaly Extremities/Musculoskelatal: normal inspection, no calf tenderness, normal capillary refill Neurologic/Psych: no motor/sensory deficits, alert, normal mood/affect, oriented x 3 Skin: normal color, warm/dry Diagnostics Laboratory Results Results Past 24 Hours Test 05/13/18 11:50 05/13/18 15:13 Range/Units White Blood Count 7.53 4.8-10.8 K/uL Red Blood Count 3.66 4.7-6.1 M/uL Hemoglobin 11.0 14.0-18.0 g/dL Hematocrit 32.5 42-52 % Mean Corpuscular Volume 88.8 80-100 fL Mean Corpuscular Hemoglobin 30.1 25-34 pg Mean Corpuscular Hemoglobin Concent 33.8 32-36 g/dl Platelet Count 212 130-400 K/uL Mean Platelet Volume 9.5 7.4-10.4 fL Neutrophils (%) (Auto) 75.6 % Lymphocytes (%) (Auto) 13.7 % Monocytes (%) (Auto) 6.0 % Eosinophils (%) (Auto) 4.2 % Basophils (%) (Auto) 0.4 % Neutrophils # (Auto) 5.69 1.4-6.5 K/uL Lymphocytes # (Auto) 1.03 1.2-3.4 K/uL Monocytes # (Auto) 0.45 0.11-0.59 K/uL Eosinophils # (Auto) 0.32 0-0.5 K/uL Basophils # (Auto) 0.03 0-0.2 K/uL RDW Standard Deviation 41.7 36.4-46.3 fL RDW Coefficient of Variation 12.9 11.5-14.5 % Immature Granulocyte % (Auto) 0.1 % Immature Granulocyte # (Auto) 0.01 0.00-0.02 K/uL Prothrombin Time 11.4 9.0-12.0 SECONDS Prothromb Time International Ratio 1.1 0.9-1.1 Sodium Level 136 136-145 mmol/L Potassium Level 4.9 3.5-5.1 mmol/L Chloride Level 105 98-107 mmol/L Carbon Dioxide Level 24 21-32 mmol/L Anion Gap 8.0 3-11 mmol/L Blood Urea Nitrogen 57 7-18 mg/dl Creatinine 2.60 0.60-1.40 mg/dl Est Creatinine Clear Calc Drug Dose 16.0 ml/min Estimated GFR () 24.4 Estimated GFR (Non- 21.1 BUN/Creatinine Ratio 22.0 10-20 Random Glucose 104 70-99 mg/dl Calcium Level 9.1 8.5-10.1 mg/dl Total Bilirubin 0.6 0.2-1 mg/dl Direct Bilirubin 0.2 0-0.2 mg/dl Aspartate Amino Transf (AST/SGOT) 21 15-37 U/L Alanine Aminotransferase (ALT/SGPT) 19 12-78 U/L Alkaline Phosphatase 90 45-117 U/L Total Protein 8.0 6.4-8.2 gm/dl Albumin 3.5 3.4-5.0 gm/dl Urine Color YELLOW Urine Appearance CLEAR CLEAR Urine pH 5.0 4.5-7.5 Urine Specific [place] 1.010 1.000-1.030 Urine Protein NEG NEG Urine Glucose (UA) NEG NEG Urine Ketones NEG NEG Urine Occult Blood NEG NEG Urine Nitrite NEG NEG Urine Bilirubin NEG NEG Urine Urobilinogen NEG NEG Urine Leukocyte Esterase NEG NEG Diagnostic Radiology HEAD CT IMPRESSION: 1. No acute intracranial abnormality. 2. Old left frontal lobe infarct. CERVICAL SPINE CT IMPRESSION: 1. No acute osseous injury of the cervical spine. 2. Multilevel degenerative changes. 3. Pleural parenchymal scarring at the lung apices with few nodular opacities at the right apex, indeterminate. Impression Assessment and Plan FALL WILFREDO ON CKD STAGE III ORTHOSTASIS URINARY RETENTION -[facility] -Patient presenting from home with what seems to be a mechanical fall -WILFREDO likely multifactorial -prerenal due to poor p.o. intake in combination with BONY inhibitor use as well as a component of postobstructive due to urinary retention -Baseline creatinine runs in the mid ones, noted to be 2.6 today -UA does not appear infected -Continue IVF -Continue to monitor orthostatic vitals -Resume Boost -PT/OT -Lares placed in ED, will check renal ultrasound and consult urology; would not start Flomax at this time due to orthostasis HYPERTENSION -BP controlled however with orthostasis -Holding lisinopril due to WILFREDO -Continue metoprolol and nifedipine HISTORY OF CVA -continue aspirin GOUT -Continue colchicine and febuxostat GERD -Continue PPI DVT PROPHYLAXIS -SQ heparin CODE STATUS -Patient is a full code without mechanical ventilation as per my discussion with him. DISPOSITION -In my clinical judgment this beneficiary meets acute admission criteria, established by [facility], that includes being hospitalized through two midnights. Attending Addendum Pt was seen and examined. Agreed with Cyndi MOISE exam, assessment and plan. 88- year-old male with PMH of CVA, HTN, Gout presents to the ED after a fall. Denies any loss of consciousness, palpitation, chest pain and SOB. General- No acute distress Head- atraumatic Eyes- PERRL, EOMI ENT- oropharynx clear, decrease hearing function Neck- supple, no JVD Lungs- No wheezing Heart- regular rhythm Abdomen- normal bowel sounds, soft Extremities- no pretibial edema, no calf tenderness Neuro- alert, oriented, PERRL, EOMI Skin- warm & dry A/p AMBULATORY DYSFUNCTION S/P FALL Admit to MedSurg Possible related to orthostatic vs dehydration and weakness Positive orthostatic noted during vital signs in the ER CT cervical showed no acute osseous injury of the cervical spine and multilevel degenerative changes. PT/OT eval Fall precaution WILFREDO ON CKD STAGE III Possible related to dehydration/ poor oral intake in combination with ACEI and urinary retention Creatine on admission 2.6, baseline seems to a little above 1.5 Continue IVF Lisinopril has been on hold Will get u/s of the kidney due to urinary retention Urology consult Avoid nephrotoxic agents Monitor BMP Please refer to Cyndi MOISE documentation for other problems. MD Lucas Resuscitation Status VTE Prophylaxis Will order VTE Prophylaxis: Yes
--- NOTE | 2018-05-13 16:49 | DIAGNOSTIC IMAGING REPORT ---
(CORNELIO/BLAD)RETROPERITON COMP HISTORY: Nephrocalcinosis WILFREDO, urinary retention COMPARISON: None. FINDINGS: Right kidney: Maximum dimension 9.1 cm. No evidence for hydronephrosis. Mild cortical thinning and increased cortical echogenicity Left kidney: Maximum dimension 9.2 cm. No evidence for hydronephrosis. Mild cortical thinning and increased cortical echogenicity. Bladder: No bladder wall thickening. The bilateral ureteral jets were identified. IMPRESSION: 1. Cortical changes consistent with either age-related change or nonobstructive renal insufficiency. 2. Study is otherwise normal. The above report was generated using voice recognition software. It may contain grammatical, syntax or spelling errors. Electronically signed by: Luke Watson M.D. 05/13/2018 4:48 PM Dictated Date/Time: 05/13/2018 4:47 PM
--- NOTE | 2018-05-13 16:56 | EMERGENCY ROOM VISIT NOTE ---
History Report prepared by Darrin: Terrance Carrillo Under the Supervision of: Dr. Erick Mayfield D.O. First contact with patient: 11:26 Chief Complaint: FALL Stated Complaint: FALL, NECK PAIN History of Present Illness The patient is an 88 year old male who presents to the Emergency Room with complaints of pain in his neck following a falling episode that occurred shortly prior to arrival. The patient and his state that he was walking out of the door when he fell to the ground. The witnessed the fall and states that he fell to his knees due to his "legs buckling underneath him." The patient denies hitting his head or losing consciousness. He also denies any chest pain, abdominal pain, diarrhea, nausea, or vomiting. He is not on any blood thinners. 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 A total of 10 systems reviewed and were otherwise negative. Past Medical & Surgical Medical Problems: (1) BPH (benign prostatic hyperplasia) (2) CKD (chronic kidney disease), stage III (3) CVA (cerebral vascular accident) (4) GERD (gastroesophageal reflux disease) (5) Gout (6) Hypertension Surgical Problems: (1) H/O inguinal hernia repair Family History Omitted secondary to patient's advanced age. Social History Smoking Status: Never Smoker Drug Use: none Marital Status: Current/Historical Medications Scheduled Aspirin (Aspirin Chewable), 81 MG PO DAILY Colchicine (Colchicine), 0.6 MG PO 3XWK Febuxostat (Uloric), 1 TAB PO BID Ferrous Sulfate (Kp Ferrous Sulfate), 1 TAB PO BID Lactobacillus Acidophilus (Lactinex), 1 TAB PO BID Lisinopril (Prinivil), 1 TAB PO DAILY Metoprolol Tartrate (Lopressor) (Lopressor), 50 MG PO BID Nifedipine Ext Rel (Procardia Xl Ext Rel), 30 MG PO DAILY Omeprazole (Prilosec), 20 MG PO DAILY Scheduled PRN Hydroxyzine Pamoate (Vistaril), 25 MG PO Q6H PRN for Itching Loperamide Hcl (Imodium), 2 MG PO DIRECTED PRN for Diarrhea Allergies Coded Allergies: NO KNOWN DRUG ALLERGIES (Verified Allergy, Unknown, none, 05/13/18) Physical Exam Vital Signs Date Time Temp Pulse Resp B/P (MAP) Pulse Ox O2 Delivery O2 Flow Rate FiO2 05/13/18 14:18 78 20 125/60 98 Room Air 05/13/18 12:26 51 16 125/63 96 Room Air 05/13/18 11:31 36.6 51 20 133/59 98 Room Air Physical Exam GENERAL: Sitting up in bed, alert, well appearing, well nourished, no distress, non-toxic. Cervical collar in place EYE EXAM: normal conjunctiva. PERRL and EOM's grossly intact. OROPHARYNX: no exudate, no erythema, lips, buccal mucosa, and tongue normal and mucous membranes are moist NECK: Cervical collar in place. supple, no nuchal rigidity, no adenopathy, non- tender. Full ROM of neck. LUNGS: Clear to auscultation. Normal chest wall mechanics HEART: no murmurs, S1 normal and S2 normal ABDOMEN: abdomen soft, non-tender, normo-active bowel sounds, no masses, no rebound or guarding. BACK: Back is symmetrical on inspection and there is no deformity, no midline tenderness, no CVA tenderness. SKIN: no rashes and no bruising UPPER EXTREMITIES: upper extremities are grossly normal. LOWER EXTREMITIES: No pitting edema. NEURO EXAM: Normal sensorium, cranial nerves II-XII grossly intact, normal speech, no gross weakness of arms, no gross weakness of legs. No drift. Finger to nose intact. Gross sensation intact. Medical Decision & Procedures ER Provider Diagnostic Interpretation: Radiology results as stated below per my review and the radiologist's interpretation: CERVICAL SPINE W/O CLINICAL HISTORY: 88 years-old Male presenting with fall head and neck pain. TECHNIQUE: Multidetector CT of the cervical spine was performed without the use of intravenous contrast. IV contrast: None. A dose lowering technique was used consistent with the principles of ALARA (as low as reasonably achievable). COMPARISON: None. CT DOSE (mGy.cm): The estimated cumulative dose is 898.33 mGy.cm. FINDINGS: Unit Manager Rn topogram: Unremarkable. Exaggerated cervical lordosis. Mild anterior vertebral body height loss of C4 likely degenerative related. Remaining vertebral bodies demonstrate normal height and alignment. Intervertebral disc height loss noted from C3-4 through C6-7, where there are disc osteophyte complexes. Mild posterior bony spurring noted at several levels. Facet arthropathy and uncovertebral hypertrophy result in varying degrees of osseous neural foraminal narrowing from C3-4 through C6-7. No acute fracture or subluxation. Pleural parenchymal scarring at the apices greater on the right. Few nodular opacities at the right apex. Atherosclerosis. Paraspinal musculature within normal limits. Dominant left thyroid lobe nodule. IMPRESSION: 1. No acute osseous injury of the cervical spine. 2. Multilevel degenerative changes. 3. Pleural parenchymal scarring at the lung apices with few nodular opacities at the right apex, indeterminate. Electronically signed by: Jj Wheatley M.D. 05/13/2018 12:31 PM Dictated Date/Time: 05/13/2018 12:27 PM HEAD WITHOUT CONTRAST (CT) CLINICAL HISTORY: 88 years-old Male presenting with fall . TECHNIQUE: Multidetector CT imaging of the head was performed without the use of intravenous contrast. IV contrast: None. A dose lowering technique was used consistent with the principles of ALARA (as low as reasonably achievable). COMPARISON: None. CT DOSE (mGy.cm): The estimated cumulative dose is 898.33. FINDINGS: Unit Manager Rn topogram: Unremarkable. Proportional ventricular and sulcal prominence, likely age-related parenchymal volume loss. Old infarct in the left frontal lobe. No mass effect or midline shift. No hemorrhage or acute territorial infarct. No extra-axial fluid collection. Paranasal sinuses and mastoid air cells clear. Calvarium intact. IMPRESSION: 1. No acute intracranial abnormality. 2. Old left frontal lobe infarct. Electronically signed by: Jj Wheatley M.D. 05/13/2018 12:26 PM Dictated Date/Time: 05/13/2018 12:23 PM Laboratory Results 05/13/18 11:50 Red Blood Count 3.66, Mean Corpuscular Volume 88.8, Mean Corpuscular Hemoglobin 30.1, Mean Corpuscular Hemoglobin Concent 33.8, Mean Platelet Volume 9.5, Neutrophils (%) (Auto) 75.6, Lymphocytes (%) (Auto) 13.7, Monocytes (%) (Auto) 6.0, Eosinophils (%) (Auto) 4.2, Basophils (%) (Auto) 0.4, Neutrophils # (Auto) 5.69, Lymphocytes # (Auto) 1.03, Monocytes # (Auto) 0.45, Eosinophils # (Auto) 0.32, Basophils # (Auto) 0.03 05/13/18 11:50 Test 05/13/18 11:50 White Blood Count 7.53 K/uL (4.8-10.8) Red Blood Count 3.66 M/uL (4.7-6.1) Hemoglobin 11.0 g/dL (14.0-18.0) Hematocrit 32.5 % (42-52) Mean Corpuscular Volume 88.8 fL (80-100) Mean Corpuscular Hemoglobin 30.1 pg (25-34) Mean Corpuscular Hemoglobin Concent 33.8 g/dl (32-36) Platelet Count 212 K/uL (130-400) Mean Platelet Volume 9.5 fL (7.4-10.4) Neutrophils (%) (Auto) 75.6 % Lymphocytes (%) (Auto) 13.7 % Monocytes (%) (Auto) 6.0 % Eosinophils (%) (Auto) 4.2 % Basophils (%) (Auto) 0.4 % Neutrophils # (Auto) 5.69 K/uL (1.4-6.5) Lymphocytes # (Auto) 1.03 K/uL (1.2-3.4) Monocytes # (Auto) 0.45 K/uL (0.11-0.59) Eosinophils # (Auto) 0.32 K/uL (0-0.5) Basophils # (Auto) 0.03 K/uL (0-0.2) RDW Standard Deviation 41.7 fL (36.4-46.3) RDW Coefficient of Variation 12.9 % (11.5-14.5) Immature Granulocyte % (Auto) 0.1 % Immature Granulocyte # (Auto) 0.01 K/uL (0.00-0.02) Prothrombin Time 11.4 SECONDS (9.0-12.0) Prothromb Time International Ratio 1.1 (0.9-1.1) Anion Gap 8.0 mmol/L (3-11) Est Creatinine Clear Calc Drug Dose 16.0 ml/min Estimated GFR () 24.4 Estimated GFR (Non- 21.1 BUN/Creatinine Ratio 22.0 (10-20) Calcium Level 9.1 mg/dl (8.5-10.1) Total Bilirubin 0.6 mg/dl (0.2-1) Direct Bilirubin 0.2 mg/dl (0-0.2) Aspartate Amino Transf (AST/SGOT) 21 U/L (15-37) Alanine Aminotransferase (ALT/SGPT) 19 U/L (12-78) Alkaline Phosphatase 90 U/L (45-117) Total Protein 8.0 gm/dl (6.4-8.2) Albumin 3.5 gm/dl (3.4-5.0) Laboratory results per my review. Medications Administered Medications (Trade) Dose Ordered Sig/Blanquita Route Start Time Stop Time Status Last Admin Dose Admin Sodium Chloride 1,000 ml @ 999 mls/hr Q1H1M STAT IV 05/13/18 12:38 05/13/18 13:38 DC 05/13/18 12:38 999 MLS/HR ECG Per My Interpretation Indication: other (Fall) Rate (beats per minute): 52 Rhythm: sinus bradycardia Findings: no ectopy, other (Normal axis, no PVCs) ED Course ED COURSE: Vital signs were reviewed and showed normal. The patients medical record was reviewed The above diagnostic studies were performed and reviewed. ED treatments and interventions as stated above. 1126: The patient was evaluated in room C10. A complete history and physical examination was performed. 1238: Ordered Sodium Chloride 1000 mL @ 999 mL/hr IV. 1258: I reviewed old records. The patient's creatinine on 02/28/2018 was 1.94. 1334: I discussed the case with Kendall Chavez - [facility]. He notes that he has followed in 2 years with the patient. He follows at the [facility] mostly. He has seen [facility]. 1344: Upon reevaluation, the patient is 1344. I discussed my findings with the patient and he understands and agrees with the treatment plan. Based on the patients age, coexisting illnesses, exam and lab findings the decision to treat as an inpatient was made. The patient remained stable while under my care. The patient will be evaluated for further management. 1416: The patient's baseline Creatinin is 1.4. 1422: I discussed the case with Cyndi MOISE Medical Decision Differential diagnoses include major intracranial, cervical, spinal, thoracic, abdominal, pelvic and neurologic injury. Fracture, contusion, sprain, strain, laceration, abrasions included as well. Patient is an 80-year-old male who presents the ER for weakness and a fall. He has no other complaints. CT head and cervical spine was unremarkable. EKG shows no acute pathology. Creatinine was 2.6. BMP and CBC were otherwise unremarkable. Discussed with his PCP Kendall Spangler and [facility] who notes that his baseline creatinine was 1.4 including his previous admission this March. Patient was given fluids. Based on this I did discuss case with internal medicine for admission for HPI. Previous creatinine 01.7 although these both appear to be up from [facility] admission in March and PCP previously. Medication Reconcilliation Current Medication List: was personally reviewed by me Blood Pressure Screening Patient's blood pressure: Normal blood pressure Consults Time Called: 1330 Consulting Physician: Dr. Chavez - PCP Returned Call: 1330 I discussed the case with Kendall Chavez - PCP. He notes that he has followed in 2 years with the patient. He follows at the [facility] mostly. He has seen [facility]. Additional Consults: Time Called: 1420 Consulted Physician: Cyndi MOISE Returned Call: 1425 Additional Comments: I discussed the case with Cyndi MOISE Impression Primary Impression: WILFREDO (acute kidney injury) Additional Impression: Fall Scribe Attestation The scribe's documentation has been prepared under my direction and personally reviewed by me in its entirety. I confirm that the note above accurately reflects all work, treatment, procedures, and medical decision making performed by me. Departure Information Dispostion Being Evaluated By Hospitalist Kendall Coyne (PCP) Patient Instructions My [facility] Problem Qualifiers Additional Impression: Fall Encounter type: initial encounter Qualified Codes: W19.XXXA - Unspecified fall, initial encounter
[2018-05-13 17:00] VITALS: BP 161/83; PULSE 55; TEMP 36.4; Ht 170.2 cm; Wt 57.7 kg
[2018-05-13] MEDS: SODIUM CHLORIDE 0.9% 1000ML 1,000 ML IV SCH (17:26)
[2018-05-13] MEDS: BOOST BREEZE NUTRITION DRINK 1 BOX PO SCH (20:34)
[2018-05-13] MEDS: METOPROLOL TARTRATE 50 MG TAB PO SCH (20:35)
[2018-05-13] MEDS: FEBUXOSTAT 40 MG TAB PO SCH (20:35)
[2018-05-13] MEDS: FERROUS SULFATE 325 MG TAB PO SCH (20:36)
[2018-05-13] MEDS: LACTOBACILLUS ACIDOPHILUS (FLORANEX) TAB PO SCH (20:36)
[2018-05-13] MEDS: HEPARIN SOD 5000 UNIT/0.5 ML CARP SQ SCH (20:40)
[2018-05-13 23:08] VITALS: BP_SYST 120; BP_SYST 123; BP_SYST 145; BP_DIAS 50; BP_DIAS 60; BP_DIAS 65; PULSE 64; TEMP 37; O2SAT 95
[2018-05-14] MEDS: SODIUM CHLORIDE 0.9% 1000ML 1,000 ML IV SCH ×2 (02:36→12:38)
[2018-05-14 06:12] LABS: HEMATOCRIT 28.5 % (42-52); HEMOGLOBIN 9.5 g/dL (14.0-18.0); MEAN CELL VOLUME 87.7 fL (80-100); MEAN CORPUSCULAR HEMOGLOBIN 29.2 pg (25-34); MEAN CORPUSCULAR HGB CONC 33.3 g/dl (32-36); MEAN PLATELET VOLUME 9.4 fL (7.4-10.4); PLATELET COUNT 200 K/uL (130-400); RED CELL DISTRIBUTION WIDTH CV 12.8 % (11.5-14.5); RED CELL DISTRIBUTION WIDTH SD 41.6 fL (36.4-46.3); WHITE BLOOD COUNT 7.29 K/uL (4.8-10.8)
[2018-05-14] MEDS: HEPARIN SOD 5000 UNIT/0.5 ML CARP SQ SCH ×3 (06:22→20:13)
[2018-05-14 06:48] VITALS: BP 149/64; PULSE 60; TEMP 36.9; O2SAT 92
[2018-05-14 07:02] LABS: CREATININE 1.68 mg/dl (0.60-1.40); POTASSIUM 4.7 mmol/L (3.5-5.1)
[2018-05-14] MEDS: FEBUXOSTAT 40 MG TAB PO SCH ×2 (08:18→20:11)
[2018-05-14] MEDS: BOOST BREEZE NUTRITION DRINK 1 BOX PO SCH ×3 (08:18→20:12)
[2018-05-14] MEDS: FERROUS SULFATE 325 MG TAB PO SCH ×2 (08:19→20:12)
[2018-05-14] MEDS: LACTOBACILLUS ACIDOPHILUS (FLORANEX) TAB PO SCH ×2 (08:19→20:12)
[2018-05-14] MEDS: METOPROLOL TARTRATE 50 MG TAB PO SCH ×2 (08:19→20:11)
[2018-05-14] MEDS ORDERED: PANTOprazole SOD 40 MG TAB PO SCH (09:00)
[2018-05-14] MEDS ORDERED: ASPIRIN 81 MG CHEW PO SCH (09:00)
[2018-05-14] MEDS ORDERED: NIFEdipine 30 MG CR TAB PO SCH (09:00)
[2018-05-14] MEDS ORDERED: COLCHICINE 0.6 MG TAB PO SCH (09:00)
--- NOTE | 2018-05-14 13:29 | Urology Consultation ---
History General Date of Service: May 14, 2018. Chief Complaint: urinary retention Primary Care Physician: Kendall Barraza Pt seen a urologist before?: No History of Present Illness I am asked by Cyndi Yoon PA-C to evaluate and treat patient for urinary retention. he was admitted last evening after a fall. he is unsure why he fell. He was heading out to go take some items to his campsite. He reports normal urinary habits at home. He stream is strong, he has no sensation of incomplete emptying. He had nocturia once at about 4am. he does not take medicine for BPH. He has not had blood in urine at home. He had a st placed in ER which went easily. he is uncertain how much urine drained. His creatinine was elevated at admission but is lower today. he says he had kidney problems a year ago. He is uncertain of the details. Imaging Imaging: Ultrasound Laboratory Results Past 24 Hours Test 05/13/18 11:50 05/13/18 15:13 05/14/18 05:38 Range/Units White Blood Count 7.53 7.29 4.8-10.8 K/uL Red Blood Count 3.66 3.25 4.7-6.1 M/uL Hemoglobin 11.0 9.5 14.0-18.0 g/dL Hematocrit 32.5 28.5 42-52 % Mean Corpuscular Volume 88.8 87.7 80-100 fL Mean Corpuscular Hemoglobin 30.1 29.2 25-34 pg Mean Corpuscular Hemoglobin Concent 33.8 33.3 32-36 g/dl Platelet Count 212 200 130-400 K/uL Mean Platelet Volume 9.5 9.4 7.4-10.4 fL Neutrophils (%) (Auto) 75.6 % Lymphocytes (%) (Auto) 13.7 % Monocytes (%) (Auto) 6.0 % Eosinophils (%) (Auto) 4.2 % Basophils (%) (Auto) 0.4 % Neutrophils # (Auto) 5.69 1.4-6.5 K/uL Lymphocytes # (Auto) 1.03 1.2-3.4 K/uL Monocytes # (Auto) 0.45 0.11-0.59 K/uL Eosinophils # (Auto) 0.32 0-0.5 K/uL Basophils # (Auto) 0.03 0-0.2 K/uL RDW Standard Deviation 41.7 41.6 36.4-46.3 fL RDW Coefficient of Variation 12.9 12.8 11.5-14.5 % Immature Granulocyte % (Auto) 0.1 % Immature Granulocyte # (Auto) 0.01 0.00-0.02 K/uL Prothrombin Time 11.4 9.0-12.0 SECONDS Prothromb Time International Ratio 1.1 0.9-1.1 Sodium Level 136 138 136-145 mmol/L Potassium Level 4.9 4.7 3.5-5.1 mmol/L Chloride Level 105 108 98-107 mmol/L Carbon Dioxide Level 24 24 21-32 mmol/L Anion Gap 8.0 6.0 3-11 mmol/L Blood Urea Nitrogen 57 42 7-18 mg/dl Creatinine 2.60 1.68 0.60-1.40 mg/dl Est Creatinine Clear Calc Drug Dose 16.0 24.8 ml/min Estimated GFR () 24.4 41.4 Estimated GFR (Non- 21.1 35.7 BUN/Creatinine Ratio 22.0 24.9 10-20 Random Glucose 104 76 70-99 mg/dl Calcium Level 9.1 8.0 8.5-10.1 mg/dl Total Bilirubin 0.6 0.2-1 mg/dl Direct Bilirubin 0.2 0-0.2 mg/dl Aspartate Amino Transf (AST/SGOT) 21 15-37 U/L Alanine Aminotransferase (ALT/SGPT) 19 12-78 U/L Alkaline Phosphatase 90 45-117 U/L Total Protein 8.0 6.4-8.2 gm/dl Albumin 3.5 3.4-5.0 gm/dl Urine Color YELLOW Urine Appearance CLEAR CLEAR Urine pH 5.0 4.5-7.5 Urine Specific [place] 1.010 1.000-1.030 Urine Protein NEG NEG Urine Glucose (UA) NEG NEG Urine Ketones NEG NEG Urine Occult Blood NEG NEG Urine Nitrite NEG NEG Urine Bilirubin NEG NEG Urine Urobilinogen NEG NEG Urine Leukocyte Esterase NEG NEG Labs were reviewed and are within normal limits unless listed below. Labs are available in the chart and at [facility] Problem List Medical Problems: (1) WILFREDO (acute kidney injury) Status: Acute (2) Dehydration Status: Acute (3) Fall Status: Acute (4) Injury of left ankle Status: Acute (5) Near syncope Status: Acute (6) Weakness Status: Acute Past History hypertension, other (he denies CVA but it is in his chart.) Past Surgical History: other (bilateral inguinal hernia repair ) Family History not contributory due to advanced age Social History Hx Tobacco Use In Past Year?: No Smoking: quit greater than 1 year, other (quit in the s) Alcohol: never Drug use: none Marital status: Housing status: lives with family Occupation status: retired Immunizations History of Tetanus Vaccine?: Yes Tetanus Immunization Date: Apr 16, 2014 History of Pneumococcal: Yes Pneumococcal Date: Jan 06, 2002 Allergies Coded Allergies: NO KNOWN DRUG ALLERGIES (Verified Allergy, Unknown, none, 05/13/18) Medications Home Medications: Home Meds and Scripts Medications Dose Route/Sig Max Daily Dose Days Date Category Dose Instructions Prinivil (Lisinopril) 10 Mg Tab 1 Tab PO DAILY 90 05/13/18 Reported Lactinex (Lactobacillus Acidophilus) Tab 1 Tab PO BID 05/13/18 Reported Prilosec (Omeprazole) 20 Mg Cap 20 Mg PO DAILY 02/22/18 Reported Uloric (Febuxostat) 40 Mg Tab 1 Tab PO BID 90 08/28/16 Reported Procardia Xl Ext Rel (Nifedipine) 30 Mg Tabcr 30 Mg PO DAILY 08/28/16 Reported Aspirin Chewable (Aspirin) 81 Mg Chew 81 Mg PO DAILY 08/28/16 Reported Lopressor (Metoprolol Tartrate) 50 Mg Tab 50 Mg PO BID 08/28/16 Reported Vistaril (Hydroxyzine Pamoate) 25 Mg Cap 25 Mg PO Q6H PRN 30 08/28/16 Reported Imodium (Loperamide HCl) 2 Mg Cap 2 Mg PO DIRECTED PRN 08/28/16 Reported Colchicine 0.6 Mg Tab 0.6 Mg PO 3XWK 08/28/16 Reported saturday, saturday and saturday Kp Ferrous Sulfate (Ferrous Sulfate) 325 Mg Tab 1 Tab PO BID 30 08/28/16 Reported Inpatient Medications: Current Inpatient Medications Medications (Trade) Dose Ordered Sig/Blanquita Route Start Time Stop Time Status Last Admin Dose Admin Heparin Sodium (Porcine) (Heparin Sq 5000 Unit/0.5ml) 5,000 unit Q8H SQ 05/13/18 22:00 06/12/18 21:59 05/14/18 06:22 5,000 UNIT Acetaminophen (Tylenol Tab) 650 mg Q4H PRN PO 05/13/18 15:00 06/12/18 14:59 Ondansetron HCl (Zofran Inj) 4 mg Q6H PRN IV 05/13/18 15:00 06/12/18 14:59 Sodium Chloride 1,000 ml @ 100 mls/hr Q10H IV 05/13/18 17:00 06/12/18 16:59 05/14/18 02:36 100 MLS/HR Aspirin (Aspirin Chew) 81 mg DAILY PO 05/14/18 09:00 06/13/18 08:59 05/14/18 08:19 81 MG Colchicine (Colchicine Tab) 0.6 mg MoWeFr@0900 PO 05/14/18 09:00 06/13/18 08:59 05/14/18 08:19 0.6 MG Lactobacillus Acidophilus (Floranex Tab) 1 tab BID PO 05/13/18 21:00 06/12/18 20:59 05/14/18 08:19 1 TAB Metoprolol Tartrate (Lopressor Tab) 50 mg BID PO 05/13/18 21:00 06/12/18 20:59 05/14/18 08:19 50 MG Nifedipine (Procardia Xl Tab) 30 mg DAILY PO 05/14/18 09:00 06/13/18 08:59 05/14/18 08:19 30 MG Febuxostat (Uloric) 40 mg BID PO 05/13/18 21:00 06/12/18 20:59 05/14/18 08:18 40 MG Ferrous Sulfate (Feosol Tab) 325 mg BID PO 05/13/18 21:00 06/12/18 20:59 05/14/18 08:19 325 MG Pantoprazole Sodium (Protonix Tab) 40 mg DAILY PO 05/14/18 09:00 06/13/18 08:59 05/14/18 08:19 40 MG Enteral Nutritional Formula (Boost Breeze Nutritional Drink) 1 box TID PO 05/13/18 21:00 06/12/18 20:59 05/14/18 08:18 1 BOX Review of Systems Review of Systems Constitutional: No fever, No chills, No problem reported (often feels cold) Neurological: + problem reported (had weakness yesterday ), No dizzy, No passing out Endocrine: + too cold, No excessive thirst, No tired/sluggish Gastrointestinal: + diarrhea (will get diarrhea if he eats salads), No indigestion, No nausea, No vomiting, No constipation Cardiovascular: No chest pain, No palpitations, No swelling ankles/feet Respiratory: No shortness of breath, No chronic cough Male : No frequent urination, No painful urination, No urinary retention, No weak stream, No blood in urine, No infections, No nocturia more than once/night Physical Exam Vital Signs: Vital Signs Past 12 Hours Date Time Temp Pulse Resp B/P (MAP) Pulse Ox O2 Delivery O2 Flow Rate FiO2 05/14/18 08:00 Room Air 05/14/18 06:48 36.9 60 16 149/64 (92) 92 Room Air 05/14/18 00:30 Room Air 05/13/18 23:08 37.0 64 18 123/50 (74) 95 120/65 (83) 145/60 (88) Physical Exam: General Appearance: WD/WN, no apparent distress, + thin Eyes: bilateral eyes normal inspection ENT: hearing grossly normal, + pertinent finding (he does wear hearing aides but seems to follow the conversation easily) Neck: no adenopathy, no JVD, trachea midline Respiratory/Chest: no accessory muscle use Gastrointestinal: Abdomen: normal abdomen Bladder: normal bladder Renal: normal renal Hernia: absent hernia Genitourinary - Male: Urethral Meatus: normal urethral meatus Testes: normal testes Scrotum: normal scrotum Anus / Perineum: normal anus/perineum Sphincter Tone: normal sphincter tone Prostate: normal prostate, pertinent finding (small size, no nodules, estmate size 30 grams) Extremities: non-tender, normal inspection, no pedal edema, no calf tenderness , normal capillary refill Neurologic/Psychiatric: alert, normal mood/affect, oriented x 3 Skin: normal color, warm/dry, no rash Lymphatic: no adenopathy Assessment & Plan Assessment & Plan urinary retention in ER after a fall acute renal insufficiency His history of last few months is remarkable for a dearth of lower urinary tract symptoms. He reports absolutely normal voiding up to yesterday. I'd like to give him a void trial today and tomorrow. here was no hydronephrosis on the ultrasound so I think we may do the void trial without risking any decline in renal function. Bladder scans every shift. Please allow him to stand to urinate. will follow agree no flomax due to fall seems he was dehydrated yesterday
[2018-05-14 15:31] VITALS: BP 182/79; PULSE 72; TEMP 36.7; O2SAT 94
[2018-05-14] MEDS ORDERED: HydrALAZINE HCL 20 MG/ML VIAL IV. PRN (16:15)
[2018-05-14 16:27] VITALS: BP 182/79; PULSE 72; TEMP 36.7; O2SAT 94
--- NOTE | 2018-05-14 16:30 | Progress Note ---
Medicine Progress Note Date & Time of Visit: May 14, 2018 at 15:47. Subjective Pt was seen and examined Lying in bed with no distress with at bedside Pt said that he feels fine today [facility] [place] [facility] I spoke to Dr. Vaughan and his physician hotel assistant general manager that accepted the patient Pt participated in therapy today and as per therapist, he lost his balance a few times Nurse said that he voided about 425 ml around 3:45 PM today He denies any chest pain, palpitation, dizziness Objective Last 8 Hrs Date Time Temp Pulse Resp B/P (MAP) Pulse Ox O2 Delivery O2 Flow Rate FiO2 05/14/18 15:31 36.7 72 18 182/79 (113 94 Room Air 05/14/18 08:00 Room Air Physical Exam: General- No acute distress Head- atraumatic Eyes- PERRL, EOMI ENT- oropharynx clear, decrease hearing function, has hearing aid Neck- supple, no JVD Lungs- No wheezing Heart- regular rhythm Abdomen- normal bowel sounds, soft Extremities- no calf tenderness, No edema Neuro- alert, oriented, PERRL, EOMI Skin- warm & dry Laboratory Results: Last 24 Hours Test 05/14/18 05:38 White Blood Count 7.29 K/uL Red Blood Count 3.25 M/uL Hemoglobin 9.5 g/dL Hematocrit 28.5 % Mean Corpuscular Volume 87.7 fL Mean Corpuscular Hemoglobin 29.2 pg Mean Corpuscular Hemoglobin Concent 33.3 g/dl RDW Standard Deviation 41.6 fL RDW Coefficient of Variation 12.8 % Platelet Count 200 K/uL Mean Platelet Volume 9.4 fL Sodium Level 138 mmol/L Potassium Level 4.7 mmol/L Chloride Level 108 mmol/L Carbon Dioxide Level 24 mmol/L Anion Gap 6.0 mmol/L Blood Urea Nitrogen 42 mg/dl Creatinine 1.68 mg/dl Est Creatinine Clear Calc Drug Dose 24.8 ml/min Estimated GFR () 41.4 Estimated GFR (Non- 35.7 BUN/Creatinine Ratio 24.9 Random Glucose 76 mg/dl Calcium Level 8.0 mg/dl Assessment & Plan AMBULATORY DYSFUNCTION S/P FALL Admit to MedSurg Possible related to orthostatic vs dehydration and weakness Positive orthostatic noted during vital signs CT head showed no acute intracranial abnormality. Old left frontal lobe infarct. CT cervical showed no acute osseous injury of the cervical spine and multilevel degenerative changes. Continue PT/OT Loss balance during therapy Fall precaution Consider inpatient rehab if no improvement in his strength in the next few days WILFREDO ON CKD STAGE III Possible related to dehydration/ poor oral intake in combination with ACEI and urinary retention Creatine on admission 2.6, baseline seems to a little above 1.5 Creatine today 1.65 On IVF, will decrease to 60ml/hr Lisinopril has been on hold Avoid nephrotoxic agents Monitor BMP URINARY RETENTION Seems to be related to dehydration Renal U/S showed no evidence for hydronephrosis. Cortical changes consistent with either age-related change or nonobstructive renal insufficiency. UA normal Lares discontinued today Urology on board recommended void trial today and tomorrow. Bladder scan every shift if unable to void Just void 425ml urine few minutes ago No Flomax added due to positive orthostatic that will increase his risks for falls Continue monitor HYPERTENSION Continue holding lisinopril due to WILFREDO Continue metoprolol and nifedipine Hydralazine PRN for elevated BP HISTORY OF CVA Continue aspirin Stable GOUT On colchicine and febuxostat caution with the colchicine if renal function worsening, dose will need to readjust Stable GERD Continue PPI DVT PROPHYLAXIS SQ heparin CODE STATUS Full code without mechanical ventilation DISPOSITION Will transfer to the [place] in [place] Accepted hospitalist physician Dr. Vaughan Case discussed with Dr. Vaughan and his PA Consultants: Urology Current Inpatient Medications: Current Inpatient Medications Medications (Trade) Dose Ordered Sig/Blanquita Route Start Time Stop Time Status Last Admin Dose Admin Heparin Sodium (Porcine) (Heparin Sq 5000 Unit/0.5ml) 5,000 unit Q8H SQ 05/13/18 22:00 06/12/18 21:59 05/14/18 13:40 5,000 UNIT Acetaminophen (Tylenol Tab) 650 mg Q4H PRN PO 05/13/18 15:00 06/12/18 14:59 Ondansetron HCl (Zofran Inj) 4 mg Q6H PRN IV 05/13/18 15:00 06/12/18 14:59 Sodium Chloride 1,000 ml @ 100 mls/hr Q10H IV 05/13/18 17:00 06/12/18 16:59 05/14/18 12:38 100 MLS/HR Aspirin (Aspirin Chew) 81 mg DAILY PO 05/14/18 09:00 06/13/18 08:59 05/14/18 08:19 81 MG Colchicine (Colchicine Tab) 0.6 mg MoWeFr@0900 PO 05/14/18 09:00 06/13/18 08:59 05/14/18 08:19 0.6 MG Lactobacillus Acidophilus (Floranex Tab) 1 tab BID PO 05/13/18 21:00 06/12/18 20:59 05/14/18 08:19 1 TAB Metoprolol Tartrate (Lopressor Tab) 50 mg BID PO 05/13/18 21:00 06/12/18 20:59 05/14/18 08:19 50 MG Nifedipine (Procardia Xl Tab) 30 mg DAILY PO 05/14/18 09:00 06/13/18 08:59 05/14/18 08:19 30 MG Febuxostat (Uloric) 40 mg BID PO 05/13/18 21:00 06/12/18 20:59 05/14/18 08:18 40 MG Ferrous Sulfate (Feosol Tab) 325 mg BID PO 05/13/18 21:00 06/12/18 20:59 05/14/18 08:19 325 MG Pantoprazole Sodium (Protonix Tab) 40 mg DAILY PO 05/14/18 09:00 06/13/18 08:59 05/14/18 08:19 40 MG Enteral Nutritional Formula (Boost Breeze Nutritional Drink) 1 box TID PO 05/13/18 21:00 06/12/18 20:59 05/14/18 13:39 1 BOX
[2018-05-14] MEDS ORDERED: Boost Nutritional Drink PO (16:33)
--- NOTE | 2018-05-14 16:39 | Discharge Instructions ---
Discharge Instructions Date of Service May 14, 2018. Admission Reason for Admission: Kuldip (Acute Kidney Injury) Discharge Discharge Diagnosis / Problem: Ambulatory dysfunction, S/P fall, Acute kidney injury on CKD stage 3 Discharge Goals Goal(s): Decrease discomfort, Improve function, Improve disease control Activity Recommendations Activity Limitations: resume your previous activity (as tolerated ) . Instructions / Follow-Up Instructions / Follow-Up Pt will be transferred to the [facility] in [facility] hospitalist physician Dr. Vaughan Continue IV fluid at 60 ml/hr for now (During the transport) Avoid nephrotoxic agents Continue monitor BMP Lisinopril on hold for now Continue voiding trial for today and tomorrow Bladder scan every shift if patient unable to void Fall precaution Continue physical and occupational therapy Once patient gets to the [place], he should stop at the front office attendant for registration Current Hospital Diet Patient's current hospital diet: Regular Diet Discharge Diet Recommended Diet: Low Sodium Diet (2gm Na) Pending Studies Studies pending at discharge: no Medical Emergencies . Who to Call and When: Medical Emergencies: If at any time you feel your situation is an emergency, please call 911 immediately. . Non-Emergent Contact Non-Emergency issues call your: Primary Care Provider Call Non-Emergent contact if: you have any medication questions . . "Provider Documentation" section prepared by Amadou Zavala. .
--- NOTE | 2018-05-14 17:46 | Discharge Summary ---
Discharge Summary Date of Service May 14, 2018. Discharge Summary Admission Date: May 13, 2018 at 15:00 Discharge Date: May 14, 2018 Discharge Disposition: Acute care facility Principal Diagnosis: Acute kidney Failure on CKD stage 3 Secondary Diagnoses/Problems: AMBULATORY DYSFUNCTION S/P FALL URINARY RETENTION HTN GERD GOUT Hx CVA Procedures: (CORNELIO/BLAD)RETROPERITON COMP HISTORY: Nephrocalcinosis WILFREDO, urinary retention COMPARISON: None. FINDINGS: Right kidney: Maximum dimension 9.1 cm. No evidence for hydronephrosis. Mild cortical thinning and increased cortical echogenicity Left kidney: Maximum dimension 9.2 cm. No evidence for hydronephrosis. Mild cortical thinning and increased cortical echogenicity. Bladder: No bladder wall thickening. The bilateral ureteral jets were identified. IMPRESSION: 1. Cortical changes consistent with either age-related change or nonobstructive renal insufficiency. 2. Study is otherwise normal. The above report was generated using voice recognition software. It may contain grammatical, syntax or spelling errors. Electronically signed by: Luke Watson M.D. 05/13/2018 4:48 PM Dictated Date/Time: 05/13/2018 4:47 PM CERVICAL SPINE W/O CLINICAL HISTORY: 88 years-old Male presenting with fall head and neck pain. TECHNIQUE: Multidetector CT of the cervical spine was performed without the use of intravenous contrast. IV contrast: None. A dose lowering technique was used consistent with the principles of ALARA (as low as reasonably achievable). COMPARISON: None. CT DOSE (mGy.cm): The estimated cumulative dose is 898.33 mGy.cm. FINDINGS: Hop Strainer topogram: Unremarkable. Exaggerated cervical lordosis. Mild anterior vertebral body height loss of C4 likely degenerative related. Remaining vertebral bodies demonstrate normal height and alignment. Intervertebral disc height loss noted from C3-4 through C6-7, where there are disc osteophyte complexes. Mild posterior bony spurring noted at several levels. Facet arthropathy and uncovertebral hypertrophy result in varying degrees of osseous neural foraminal narrowing from C3-4 through C6-7. No acute fracture or subluxation. Pleural parenchymal scarring at the apices greater on the right. Few nodular opacities at the right apex. Atherosclerosis. Paraspinal musculature within normal limits. Dominant left thyroid lobe nodule. IMPRESSION: 1. No acute osseous injury of the cervical spine. 2. Multilevel degenerative changes. 3. Pleural parenchymal scarring at the lung apices with few nodular opacities at the right apex, indeterminate. Electronically signed by: Jj Whetaley M.D. 05/13/2018 12:31 PM Dictated Date/Time: 05/13/2018 12:27 PM HEAD WITHOUT CONTRAST (CT) CLINICAL HISTORY: 88 years-old Male presenting with fall . TECHNIQUE: Multidetector CT imaging of the head was performed without the use of intravenous contrast. IV contrast: None. A dose lowering technique was used consistent with the principles of ALARA (as low as reasonably achievable). COMPARISON: None. CT DOSE (mGy.cm): The estimated cumulative dose is 898.33. FINDINGS: Hop Strainer topogram: Unremarkable. Proportional ventricular and sulcal prominence, likely age-related parenchymal volume loss. Old infarct in the left frontal lobe. No mass effect or midline shift. No hemorrhage or acute territorial infarct. No extra-axial fluid collection. Paranasal sinuses and mastoid air cells clear. Calvarium intact. IMPRESSION: 1. No acute intracranial abnormality. 2. Old left frontal lobe infarct. Electronically signed by: Jj Wheatley M.D. 05/13/2018 12:26 PM Dictated Date/Time: 05/13/2018 12:23 PM Consultations: Urology Medication Reconciliation New Medications: [Boost Nutritional Drink] () 1 BOX LIQD 1 BOX PO TID for 10 Days Continued Medications: Aspirin (Aspirin Chewable) 81 Mg Chew 81 MG PO DAILY Colchicine (Colchicine) 0.6 Mg Tab 0.6 MG PO 3XWK, TAB saturday, saturday and saturday Febuxostat (Uloric) 40 Mg Tab 1 TAB PO BID for 90 Days, #180 TAB 3 Refills Ferrous Sulfate (Kp Ferrous Sulfate) 325 Mg Tab 1 TAB PO BID for 30 Days, #60 TAB 3 Refills Lactobacillus Acidophilus (Lactinex) Tab 1 TAB PO BID, TAB Loperamide Hcl (Imodium) 2 Mg Cap 2 MG PO DIRECTED PRN for Diarrhea, CAP Metoprolol Tartrate (Lopressor) (Lopressor) 50 Mg Tab 50 MG PO BID, TAB Nifedipine Ext Rel (Procardia Xl Ext Rel) 30 Mg Tabcr 30 MG PO DAILY, TAB Omeprazole (Prilosec) 20 Mg Cap 20 MG PO DAILY, CAP Discontinued Medications: Hydroxyzine Pamoate (Vistaril) 25 Mg Cap 25 MG PO Q6H PRN for Itching for 30 Days, #120 CAP Lisinopril (Prinivil) 10 Mg Tab 1 TAB PO DAILY for 90 Days, #90 TAB 1 Refill Admission Information HPI (per Admitting provider): 88-year-old male who presents to the ED after a fall at home. Patient reports he was getting ready to go camping and about to walk out his front door when his legs suddenly became weak and he fell to the ground. He denies loss of consciousness or striking his head. No associated chest pain, shortness of breath, lightheadedness, dizziness. Patient reports he has been having neck pain for the past couple months. He was admitted to the [facility] in [place] in March for neck pain and was told he has arthritis. Patient reports he occasionally continues to get neck spasms. He reports that he has had a spasm today before falling to the ground and is unsure if that is why he fell. Patient reports he has had a poor appetite for the past couple of years. When he was recently admitted, he was instructed to drink boost 3 times a day however he has not been doing so. He admits he does not drink enough fluid. He has intermittent diarrhea based upon the foods he eats, this is unchanged from baseline. He denies abdominal pain, nausea, vomiting. No fevers or chills. He denies any urinary symptoms. In the ED, patient was found to have an WILFREDO with creatinine of 2.6 (baseline runs in the mid ones), positive orthostatic vitals, and urinary retention. Patient was given IVF. Physical Exam (per Admitting): General Appearance: no apparent distress, + thin Head: normocephalic, atraumatic Eyes: normal inspection, EOMI, sclerae normal ENT: hearing grossly normal, + pertinent finding (Mucous membranes dry) Neck: supple, no JVD, trachea midline Respiratory/Chest: lungs clear, normal breath sounds, no respiratory distress Cardiovascular: regular rate, rhythm, no edema, normal peripheral pulses Abdomen/GI: normal bowel sounds, non tender, soft, no organomegaly Extremities/Musculoskelatal: normal inspection, no calf tenderness, normal capillary refill Neurologic/Psych: no motor/sensory deficits, alert, normal mood/affect, oriented x 3 Skin: normal color, warm/dry Hospital Course AMBULATORY DYSFUNCTION S/P FALL Admit to [facility] Possible related to orthostatic vs dehydration and weakness Positive orthostatic noted during vital signs CT head showed no acute intracranial abnormality. Old left frontal lobe infarct. CT cervical showed no acute osseous injury of the cervical spine and multilevel degenerative changes. Continue PT/OT Loss balance during therapy Fall precaution Consider inpatient rehab if no improvement in his strength in the next few days WILFREDO ON CKD STAGE III Possible related to dehydration/ poor oral intake in combination with ACEI and urinary retention Creatine on admission 2.6, baseline seems to a little above 1.5 Creatine today 1.65 On IVF, will decrease to 60ml/hr Lisinopril has been on hold Avoid nephrotoxic agents Monitor BMP URINARY RETENTION Seems to be related to dehydration Renal U/S showed no evidence for hydronephrosis. Cortical changes consistent with either age-related change or nonobstructive renal insufficiency. UA normal Lares discontinued today Urology on board recommended void trial today and tomorrow. Bladder scan every shift if unable to void Just void 425ml urine few minutes ago No Flomax added due to positive orthostatic that will increase his risks for falls Continue monitor HYPERTENSION Continue holding lisinopril due to WILFREDO Continue metoprolol and nifedipine Hydralazine PRN for elevated BP HISTORY OF CVA Continue aspirin Stable GOUT On colchicine and febuxostat caution with the colchicine if renal function worsening, dose will need to readjust Stable GERD Continue PPI DVT PROPHYLAXIS SQ heparin CODE STATUS Full code without mechanical ventilation DISPOSITION Will transfer to the [facility] Accepted hospitalist physician Dr. Vaughan Case discussed with Dr. Vaughan and his PA Total time spent on discharge = 40 minutes This includes examination of the patient, discharge planning, medication reconciliation, and communication with other providers. Discharge Instructions Discharge Instructions Date of Service May 14, 2018. Admission Reason for Admission: Wilfredo (Acute Kidney Injury) Discharge Discharge Diagnosis / Problem: Ambulatory dysfunction, S/P fall, Acute kidney injury on CKD stage 3 Discharge Goals Goal(s): Decrease discomfort, Improve function, Improve disease control Activity Recommendations Activity Limitations: resume your previous activity (as tolerated ) . Instructions / Follow-Up Instructions / Follow-Up Pt will be transferred to the [facility] Accepted hospitalist physician Dr. Vaughan Continue IV fluid at 60 ml/hr for now (During the transport) Avoid nephrotoxic agents Continue monitor BMP Lisinopril on hold for now Continue voiding trial for today and tomorrow Bladder scan every shift if patient unable to void Fall precaution Continue physical and occupational therapy [facility] he [facility] at the front end driver for registration Current Hospital Diet Patient's current hospital diet: Regular Diet Discharge Diet Recommended Diet: Low Sodium Diet (2gm Na) Pending Studies Studies pending at discharge: no Medical Emergencies . Who to Call and When: Medical Emergencies: If at any time you feel your situation is an emergency, please call 911 immediately. . Non-Emergent Contact Non-Emergency issues call your: Primary Care Provider Call Non-Emergent contact if: you have any medication questions . . "Provider Documentation" section prepared by Amadou Zavala. .
== END 2018-05-14 20:52 | DRG 684 ==
LOC: EDBD 11:26 → C.EDC 11:29 → C.MS2W 15:00 → ENRESERV 15:16
PROVIDERS: ADMIT Internal Medicine; ATTEND Internal Medicine
DX: N17.9 Acute kidney failure, unspecified (principal); N40.1 Benign prostatic hyperplasia with lower urinary tract symptoms; N18.3 Chronic kidney disease, stage 3 (moderate); K21.9 Gastro-esophageal reflux disease without esophagitis; I12.9 Hypertensive chronic kidney disease with stage 1 through stage 4 chronic kidney disease, or unspecified chronic kidney disease; M54.2 Cervicalgia; Z86.73 Personal history of transient ischemic attack (TIA), and cerebral infarction without residual deficits; M10.9 Gout, unspecified; I95.1 Orthostatic hypotension; R33.9 Retention of urine, unspecified; Y93.01 Activity, walking, marching and hiking; W19.XXXA Unspecified fall, initial encounter; Y92.018 Other place in single-family (private) house as the place of occurrence of the external cause; Z79.82 Long term (current) use of aspirin

== ENCOUNTER 2019-03-28 19:19 | Inpatient (IN) ==
--- OUTSIDE RECORDS SUMMARY | 2019-03-28 19:21 | External Medical Summary | Continuity of Care Document ---
:1930 Author Name Jaylan Florian Address Unavailable Unavailable , Care Team Providers Name Role Phone NonMNPG M.D. 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 Start: 13-May-2017 Refills: 0 Metoprolol Tartrate 50 MG Oral Tablet; TAKE 1 TABLET EVERY 1 2 HOURS DAILY. Start: 13-May-2017 Refills: 0 Lisinopril 20 MG Oral Tablet; TAKE 1 TABLET DAILY DIRECTE D. Start: 13-May-2017 Refills: 0 15 Tablet Bottle NIFEdipine ER 30 MG Oral Tablet Extended Release 24 Hour; TA KE 1 TABLET DAILY. Start: 13-May-2017 Refills: 0 Iron 325 (65 Fe) MG Oral Tablet; TAKE 1 TABLET DAILY DIRE CTED. Start: 13-May-2017 Refills: 0 Procedures History of inguinal hernia repair Status : Completed History of inguinal hernia repair Status : Completed 03-Jul-2017 0:00 Immunizations Immunizations not documented Family History Mother Family history of hypertension (V17.49) (Z82.49) Status: Act chay Family history of cerebrovascular accident (CVA) (V17.1) (Z8 2.3) Status: Active Sister Family history of hypertension (V17.49) (Z82.49) Status: Act chay Brother Family history of hypertension (V17.49) (Z82.49) Status: Act chay Social History - Smoking Status Never smoker Plan of Treatment Planned Observations Planned Goals not documented Results No Known Results Results not documented Encounters Appointment; Aniya Munoz III, M.D. 26-Jan-2019 15:00 Encounter Diagnosis: Problem not documented Appointment; Geronimo Rodríguez DO 16-Jul-2017 10:15 Encounter Diagnosis: Problem not documented Appointment; Geronimo Rodríguez DO 03-Jul-2017 8:30 Encounter Diagnosis: Problem not documented Appointment; Geronimo Rodríguez DO 13-Jun-2017 9:00 Encounter Diagnosis: Problem not documented Appointment; Geronimo Rodríguez DO 13-May-2017 11:30 Encounter Diagnosis: Problem not documented
--- NOTE | 2019-03-28 19:56 | XRay Report ---
SINGLE VIEW CHEST CLINICAL HISTORY: Generalized weakness. FINDINGS: An AP, portable, upright chest radiograph is compared to study dated 04/07/2018. The examinat ion is degraded by portable technique and patient rotation. The heart is mildly enlarged and there is atherosclerotic calcification of the thoracic aorta. The pulmonary vasculature is noncongested. Ch ronic interstitial thickening is similar to previous. There is elevation of the left hemidiaphragm wi th bibasilar atelectasis. Small pleural effusions are noted. No airspace consolidation is seen typica l for pneumonia. No pneumothorax is seen. The skeletal structures are osteopenic. The bony thorax is grossly intact. Advanced arthritic change is present in the right shoulder. There is superior subluxa tion of the right humeral head suggesting chronic rotator cuff injury. IMPRESSION: 1. Mild cardiomegaly without radiographic evidence of congestive failure. 2. There are small pleural effusions. Electronically signed by: Guillermo Galvez M.D. 03/28/2019 7:55 PM
[2019-03-28] MEDS ORDERED: SODIUM CHLORIDE 0.9% 1000ML 1,000 ML IV STA (20:06)
[2019-03-28] MEDS ORDERED: SODIUM CHLORIDE 0.9% 1000ML 500 ML IV ONE (20:06)
[2019-03-28 20:18] LABS: Basophils # (auto) 0.01 K/uL (0-0.2); Basophils % (auto) 0.1 %; Eosinophils # (auto) 0.01 K/uL (0-0.5); Eosinophils % (auto) 0.1 %; Hematocrit (blood only) 33.7 % (42-52); Hemoglobin 11.4 g/dL (14.0-18.0); Immature Granulocytes # (auto) 0.04 K/uL (0.00-0.02); Immature Granulocytes % (auto) 0.2 %; Lymphocytes # (auto) 1.28 K/uL (1.2-3.4); Lymphocytes % (auto) 7.4 %; Mean Corpuscular Hgb Conc 33.8 g/dL (32-36); Mean Corpuscular Volume 89.4 fL (80-100); Mean Platelet Volume 9.6 fL (7.4-10.4); Monocytes % (auto) 7.6 %; Neutrophils # (auto) 14.55 K/uL (1.4-6.5); Neutrophils % (auto) 84.6 %; Platelet Count 198 K/uL (130-400); RDW Coefficient of Variation 12.9 % (11.5-14.5); RDW Standard Deviation 41.5 fL (36.4-46.3); Red Blood Count 3.77 M/uL (4.7-6.1); White Blood Count 17.19 K/uL (4.8-10.8)
[2019-03-28 20:39] LABS: Albumin Level 3.5 gm/dl (3.4-5.0); BUN Creatinine Ratio 26.3 (10-20); Calcium 8.9 mg/dl (8.5-10.1); Creatinine Clr Calc Pharmacy 20.9 ml/min; Est GFR (African American) 33.9; Est GFR (Non-African American) 29.3; Magnesium 1.5 mg/dl (1.8-2.4)
--- NOTE | 2019-03-28 20:46 | CT Scan Report ---
CT SCAN OF THE BRAIN WITHOUT IV CONTRAST CLINICAL HISTORY: Syncope. COMPARISON STUDY: CT of the brain dated 05/13/2018. TECHNIQUE: Unenhanced axial CT scan of the brain is performed from the vertex to the skull base. A do se lowering technique was utilized adhering to the principles of ALARA. CT DOSE: 558.22 mGycm FINDINGS: Brain parenchyma: There are age-related involutional changes noting mild subcortical and periventric ular microangiopathic change. A focus of left frontal encephalomalacia is unchanged and consistent wi th a remote infarct. There is no hemorrhage, mass effect, or evidence of acute territorial ischemia b y CT criteria. Diamond-white matter differentiation is preserved. No extra-axial fluid collection is see n. Ventricles, sulci, cisterns: Prominent secondary to involutional change. Intracranial vasculature: There is atherosclerotic calcification of the cavernous carotid and vertebr al arteries. Calvarium: The skeletal structures are osteopenic. No depressed calvarial fracture is identified.. Sinuses and mastoids: The visualized paranasal sinuses are clear. The mastoid air cells are well pneu matized. Orbits: The bony orbits are grossly intact. There are bilateral ocular lens implants. IMPRESSION: Senescent changes as above with no hemorrhage, mass effect, or evidence of acute territor ial ischemia by CT criteria. Electronically signed by: Guillermo Galvez M.D. 03/28/2019 8:45 PM
[2019-03-28 20:53] LABS: Albumin Globulin Ratio 0.7 (0.9-2); Bilirubin,Total 0.7 mg/dl (0.2-1); Globulin 4.8 gm/dl (2.5-4.0); Total Protein 8.3 gm/dl (6.4-8.2); Troponin I 0.171 ng/ml (0-0.045)
--- NOTE | 2019-03-28 21:17 | CT Scan Report ---
CT SCAN OF THE CERVICAL SPINE CLINICAL HISTORY: Syncope. Neck pain. COMPARISON STUDY: CT scan of the cervical spine dated 05/13/2018. TECHNIQUE: CT scan of the cervical spine is performed from the skull base to the upper thoracic spine . Images are reviewed in the axial, sagittal, and coronal planes. IV contrast was not administered fo r this examination. A dose lowering technique was utilized adhering to the principles of ALARA. CT DOSE: 364.69 mGycm FINDINGS: Skeletal structures: The skeletal structures are osteopenic. There is no evidence of fracture or subl uxation involving the cervical spine. Vertebral body height and alignment are maintained. Small anter ior osteophytes are seen throughout. Hyperlordosis is noted. The odontoid process and lateral masses are intact. The atlantoaxial articulation is preserved noting productive degenerative change. The spi nous processes appear intact. There is moderate multilevel cervical spondylosis. Uncovertebral and fa cet arthropathy contribute to neural foraminal stenosis at several levels. Intervertebral discs: Moderate disc space narrowing is seen from C3 -C4 through C6-C7. Central canal: Posterior disc osteophyte complexes are seen from C3-C4 through C6-C7. This likely con tributes to mild multilevel acquired compromise of the central canal. Soft tissues: The prevertebral and paraspinous soft tissues are within normal limits. A large calcifi ed left lobe thyroid nodule is unchanged from previous and measures up to 1.6 cm. There is atheroscle rotic calcification of the carotid bulbs. Calvarium: The visualized calvarium at the skull base appears intact. Brain parenchyma: Partially visualized brain parenchyma the skull base is within normal limits noting age-related involutional change. Sinuses and mastoids: The visualized paranasal sinuses are clear. There is a small left mastoid effus ion. The right mastoid air cells are well pneumatized. Lung apices: Clear as visualized. IMPRESSION: 1. There is no evidence of fracture or subluxation involving the cervical spine. 2. Osteopenia and spondylotic change as above. Electronically signed by: Guillermo Galvez M.D. 03/28/2019 9:16 PM
[2019-03-28] MEDS ORDERED: MAGNESIUM SULFATE / D5W 1 GM/100 ML BAG IV STA (22:17)
[2019-03-28] MEDS ORDERED: NITROGLYCERIN SL 0.4 MG/TAB TAB SL PRN (22:38)
[2019-03-28] MEDS ORDERED: ONDANSETRON INJ 2 MG/ML 2 ML VIAL IV PRN (22:38)
[2019-03-28] MEDS ORDERED: ACETAMINOPHEN 325 MG TAB PO PRN (22:38)
[2019-03-28] MEDS ORDERED: SODIUM CHLORIDE 0.9% 1000ML 1,000 ML IV SCH (22:38)
[2019-03-28 23:54] LABS: Appearance Urine Clear (Clear); Bilirubin Urine Negative (Negative); Blood Urine Negative (Negative); Color Urine Yellow; Glucose Urine UA Negative (Negative); Ketones Urine Negative (Negative); Leukocyte Esterase Urine Negative (Negative); Nitrite Urine Negative (Negative); Protein Urine Negative (Negative); Specific Gravity Urine 1.016 (1.000-1.030); Urobilinogen Urine Negative (Negative)
--- NOTE | 2019-03-29 01:37 | Emergency Department Note ---
Entered by Shonda Gutiérrez acting as a scribe for ED Provider Note CHIEF COMPLAINT: Syncopal episodes HISTORY OF PRESENT ILLNESS: The patient is a 89 year old male who presents to the Emergency Room with complaints of near- syncopal episodes that occurred TYPE [employer]. His , at bedside, reports that the first episode occurred while he was in the kitchen. She states that he slowly lowered himself to the floor, and she caught his head. The notes that he was on the floor for 15 minutes, and he kept "blacking out" while on the floor. The patient complains of weakness and lethargy. His reports that he had loose, black BMs last night, noting that this happens periodically. The patient complains of neck pain, but he notes that this is not new. Pt denies fevers, chills, diaphoresis, visual changes, headache, chest pain, breathing difficulties, nausea, vomiting, abdominal pain, back pain, melena, hematochezia, urinary symptoms, numbness, weakness, lymphadenopathy, rash, or other complaints. REVIEW OF SYSTEMS: See HPI for pertinent positives and negatives. A total of ten systems were reviewed and were otherwise negative. PMHx/PSHx: Stage 3 CKD, CVA, HTN, GERD, inguinal hernia repair SOCIAL HISTORY: Patient lives at home. PHYSICAL EXAM: GENERAL: Awake, alert, tired-appearing, in no distress HENT: Normocephalic, atraumatic. Oropharynx unremarkable. EYES: PERRL. Normal conjunctiva. Sclera non-icteric. NECK: Non-tender. Supple. No nuchal rigidity. FROM. No masses. No midline tenderness. Discomforted elicited with left and right gaze. RESPIRATORY: Clear to auscultation. No wheezes. No rales. Normal respiratory effort. CARDIAC: Normal rate. Normal rhythm. No murmurs. No rubs. Extremities warm and well perfused. Pulses equal. No JVD. GI: Soft, non-distended. No tenderness to palpation. No rebound or guarding. No masses. RECTAL: Deferred. MUSCULOSKELETAL: Atraumatic. Chest examination reveals no tenderness. The back is symmetrical on inspection without obvious abnormality. There is no CVA tenderness to palpation. No joint edema. LOWER EXTREMITIES: Calves are equal size bilaterally and non-tender. No edema. No discoloration. NEURO: Normal sensorium. No sensory or motor deficits noted. SKIN: No rash or jaundice noted. EMERGENCY DEPARTMENT COURSE: 1953: Past medical records reviewed. The patient was evaluated in room C11B, and a complete history and physical examination were performed. 2109: I reassessed the patient. 2202: I spoke with Dr. Basurto, [facility] hospitalist, about the patients case. He will further evaluate the patient. MEDICAL DECISION MAKING: Prior records/ancillary studies reviewed. Nursing notes reviewed and agree them. Additional history obtained from family. The patient's history was concerning for weakness and near syncope. Differential diagnosis: Etiologies such as metabolic, infection, hypo/hyperglycemia, electrolyte abnorma lities, cardiac sources, intracerebral event, toxicologic, neurologic, as well as others were entertained. Physical examination: As above. ER treatment provided: IV [place] Sal[place] hydration On reassessment the patient felt better. Diagnostics interpretation by me: ECG: No acute ischemia The labs revealed a moderate leukocytosis on CBC of 17,000. Patient's hemoglobin was low at 11.4. Chemistry panel revealed slight dehydration but not significantly changed from prior. Patient's troponin is concerning. It is elevated at 0.171 urinalysis pending. Imaging studies: Chest x-ray and head CT were negative. Patient had a near syncopal episode. He is mildly dry. His blood pressure was low and orthostatic testing positive. He was hydrated. His troponin is elevated. He needs further management in the hospital. Consultation: A consultation was placed with the [facility] hospitalist. The case was discussed and diagnostics were reviewed. The patient was evaluated in the ER for further treatment. IMPRESSION: Near-syncope, Hypotension, Elevated troponin PLAN: Evaluation by hospitalist The scribe's documentation has been prepared under my direction and personally reviewed by me in its entirety. I confirm that the note above accurately reflects all work, treatment, procedures, and medical decision making performed by me. Impression & Plan Near syncope, Elevated troponin, Hypotension Past Med/Surg History Medical History BPH (benign prostatic hyperplasia) (Chronic) Hypertension (Chronic) CVA (cerebral vascular accident) (Chronic) CKD (chronic kidney disease), stage III (Chronic) Gout (Chronic) GERD (gastroesophageal reflux disease) (Chronic) Surgical History H/O inguinal hernia repair (Chronic) Social History Preferred Language: Japanese Communication Ability: Effective Communication Ability Comment: Bilateral Hearing Aides Hand Heel Seat Fitter Required: No Beliefs That Will Affect Care: None Current Living Situation: Spouse Other Information That Helps Us Care for You: No Feels Safe at Home: Yes Safety Concerns: Feels Safe At This Time Smoking Status: Former smoker Hx Alcohol Use: No Hx Substance Use: No Results & Data Vital Signs Vital Signs - 24 hr 03/28/19 19:21 03/28/19 19:28 03/28/19 20:03 Temperature 36.3 C L Temperature Source Oral Sepsis Recent Fever Within 48 Hours No Sepsis New/Unexplained Change in Mental Status No Sepsis Action Taken by Nursing No Action Required Pulse Rate - Lying 75 Pulse Rate - Sitting 76 Pulse Rate - Standing 82 Pulse Rate 78 Pulse Rate from SpO2 Sensor Respiratory Rate 18 Respiratory Effort / Characteristics Non-Labored Spontaneous Respiratory Depth Normal Blood Pressure - Lying 127/91 Blood Pressure - Sitting 117/63 Blood Pressure- Standing 93/53 L Blood Pressure 97/57 L Blood Pressure Mean 70 Pulse Oximetry 93 93 Oxygen Delivery Method Room Air Room Air Oxygen Flow Rate 03/28/19 20:52 03/28/19 21:00 03/28/19 21:01 Temperature Temperature Source Sepsis Recent Fever Within 48 Hours Sepsis New/Unexplained Change in Mental Status Sepsis Action Taken by Nursing Pulse Rate - Lying Pulse Rate - Sitting Pulse Rate - Standing Pulse Rate 75 75 75 Pulse Rate from SpO2 Sensor 75 74 75 Respiratory Rate 22 18 17 Respiratory Effort / Characteristics Respiratory Depth Blood Pressure - Lying Blood Pressure - Sitting Blood Pressure- Standing Blood Pressure 131/58 L Blood Pressure Mean 82 Pulse Oximetry 96 93 94 Oxygen Delivery Method Nasal Cannula Nasal Cannula Nasal Cannula Oxygen Flow Rate 1 1 1 03/28/19 21:21 03/28/19 21:22 03/28/19 21:30 Temperature Temperature Source Sepsis Recent Fever Within 48 Hours Sepsis New/Unexplained Change in Mental Status Sepsis Action Taken by Nursing Pulse Rate - Lying Pulse Rate - Sitting Pulse Rate - Standing Pulse Rate 75 75 74 Pulse Rate from SpO2 Sensor 74 75 73 Respiratory Rate 15 17 26 H Respiratory Effort / Characteristics Respiratory Depth Blood Pressure - Lying Blood Pressure - Sitting Blood Pressure- Standing Blood Pressure 139/46 L Blood Pressure Mean 77 Pulse Oximetry 94 93 95 Oxygen Delivery Method Nasal Cannula Oxygen Flow Rate 1 03/28/19 21:31 03/28/19 22:00 03/28/19 22:01 Temperature Temperature Source Sepsis Recent Fever Within 48 Hours Sepsis New/Unexplained Change in Mental Status Sepsis Action Taken by Nursing Pulse Rate - Lying Pulse Rate - Sitting Pulse Rate - Standing Pulse Rate 73 79 79 Pulse Rate from SpO2 Sensor 74 80 79 Respiratory Rate 22 23 25 H Respiratory Effort / Characteristics Respiratory Depth Blood Pressure - Lying Blood Pressure - Sitting Blood Pressure- Standing Blood Pressure 134/58 L 141/77 H Blood Pressure Mean 83 98 Pulse Oximetry 97 90 92 Oxygen Delivery Method Nasal Cannula Oxygen Flow Rate 2 Home Medications Current Medication List: was personally reviewed by me Laboratory Data Attestation: I reviewed the patient's lab results. Result diagrams: 03/28/19 19:55 03/28/19 19:55 Lab Results 03/28/19 03/28/19 Range/Units 19:55 19:55 WBC 17.19 H (4.8-10.8) K/uL RBC 3.77 L (4.7-6.1) M/uL Hgb 11.4 L (14.0-18.0) g/dL Hct 33.7 L (42-52) % MCV 89.4 (80-100) fL MCH 30.2 (25-34) pg MCHC 33.8 (32-36) g/dL RDW Std Deviation 41.5 (36.4-46.3) fL RDW Coeff of Edmundo 12.9 (11.5-14.5) % Plt Count 198 (130-400) K/uL MPV 9.6 (7.4-10.4) fL Immature Gran % (Auto) 0.2 % Neut % (Auto) 84.6 % Lymph % (Auto) 7.4 % Sebastian % (Auto) 7.6 % Eos % (Auto) 0.1 % Baso % (Auto) 0.1 % Immature Gran # (Auto) 0.04 H (0.00-0.02) K/uL Neut # (Auto) 14.55 H (1.4-6.5) K/uL Lymph # (Auto) 1.28 (1.2-3.4) K/uL Sebastian # (Auto) 1.30 H (0.11-0.59) K/uL Eos # (Auto) 0.01 (0-0.5) K/uL Baso # (Auto) 0.01 (0-0.2) K/uL Sodium 134 L (136-145) mmol/L Potassium 5.0 (3.5-5.1) mmol/L Chloride 103 (98-107) mmol/L Carbon Dioxide 25 (21-32) mmol/L Anion Gap 6.0 (3-11) BUN 52 H (7-18) mg/dl Creatinine 1.97 H (0.6-1.4) mg/dl Est Cr Clr Drug Dosing 20.9 ml/min Est GFR ( Amer) 33.9 Est GFR (Non-Af Amer) 29.3 BUN/Creatinine Ratio 26.3 H (10-20) Glucose 139 H (70-99) mg/dl Calcium 8.9 (8.5-10.1) mg/dl Magnesium 1.5 L (1.8-2.4) mg/dl Total Bilirubin 0.7 (0.2-1) mg/dl AST 14 L (15-37) U/L ALT 17 (12-78) U/L Alkaline Phosphatase 90 (45-117) U/L Troponin I 0.171 H* (0-0.045) ng/ml Total Protein 8.3 H (6.4-8.2) gm/dl Albumin 3.5 (3.4-5.0) gm/dl Globulin 4.8 H (2.5-4.0) gm/dl Albumin/Globulin Ratio 0.7 L (0.9-2) TSH 1.140 (0.300-4.500) uIu/ml Administered Medications Sodium Chloride (Nss 1000ml) 1,000 mls @ 75 mls/hr IV .[id number] NOEMI Stop: 04/27/19 22:37 Last Admin: 03/28/19 23:55 Dose: 75 mls/hr Documented by: [id number] Miscellaneous (Order Awaiting Action) 1 ea N/A QS NOEMI Stop: 04/28/19 00:00 Last Admin: 03/28/19 23:58 Dose: Not Given Documented by: [id number] Discontinued Medications Sodium Chloride (Nss 1000ml) 1,000 mls @ 125 mls/hr IV .Q8H STA Stop: 03/29/19 04:05 Last Infusion: 03/28/19 23:47 Dose: 0 mls/hr Documented by: [id number] Admin: 03/28/19 20:53 Dose: 125 mls/hr Documented by: [id number] Sodium Chloride (Nss 1000ml) 500 mls @ 999 mls/hr IV .Q31M ONE Stop: 03/28/19 20:36 Last Infusion: 03/28/19 20:53 Dose: 0 mls/hr Documented by: [id number] Admin: 03/28/19 20:10 Dose: 999 mls/hr Documented by: [id number] Magnesium Sulfate/Dextrose (Magnesium Sulfate / D5w) 1 gm in 100 mls @ 100 mls/hr IV Q1H STA Stop: 03/28/19 23:16 Last Infusion: 03/29/19 00:22 Dose: 0 mls/hr Documented by: [id number] Admin: 03/28/19 23:17 Dose: 100 mls/hr Documented by: [id number] Imaging Data Radiologist's Impression: Radiology results as stated below per my review and the radiologist's interpretation: SINGLE VIEW CHEST CLINICAL HISTORY: Generalized weakness. FINDINGS: An AP, portable, upright chest radiograph is compared to study dated 04/07/2018. The examination is degraded by portable technique and patient rotation. The heart is mildly enlarged and there is atherosclerotic calcification of the thoracic aorta. The pulmonary vasculature is noncongested. Chronic interstitial thickening is similar to previous. There is elevation of the left hemidiaphragm with bibasilar atelectasis. Small pleural effusions are noted. No airspace consolidation is seen typical for pneumonia. No pneumothorax is seen. The skeletal structures are osteopenic. The bony thorax is grossly intact. Advanced arthritic change is present in the right shoulder. There is superior subluxation of the right humeral head suggesting chronic rotator cuff injury. IMPRESSION: 1. Mild cardiomegaly without radiographic evidence of congestive failure. 2. There are small pleural effusions. Electronically signed by: Guillermo Galvez M.D. 03/28/2019 7:[address] SCAN OF THE BRAIN WITHOUT IV CONTRAST CLINICAL HISTORY: Syncope. COMPARISON STUDY: CT of the brain dated 05/13/2018. TECHNIQUE: Unenhanced axial CT scan of the brain is performed from the vertex to the skull base. A dose lowering technique was utilized adhering to the principles of ALARA. CT DOSE: 558.22 mGycm FINDINGS: Brain parenchyma: There are age-related involutional changes noting mild subcortical and periventricular microangiopathic change. A focus of left frontal encephalomalacia is unchanged and consistent with a remote infarct. There is no hemorrhage, mass effect, or evidence of acute territorial ischemia by CT criteria. Diamond-white matter differentiation is preserved. No extra-axial fluid collection is seen. Ventricles, sulci, cisterns: Prominent secondary to involutional change. Intracranial vasculature: There is atherosclerotic calcification of the cavernous carotid and vertebral arteries. Calvarium: The skeletal structures are osteopenic. No depressed calvarial fracture is identified.. Sinuses and mastoids: The visualized paranasal sinuses are clear. The mastoid air cells are well pneumatized. Orbits: The bony orbits are grossly intact. There are bilateral ocular lens implants. IMPRESSION: Senescent changes as above with no hemorrhage, mass effect, or evidence of acute territorial ischemia by CT criteria. Electronically signed by: Guillermo Galvez M.D. 03/28/2019 8:[address] SCAN OF THE CERVICAL SPINE CLINICAL HISTORY: Syncope. Neck pain. COMPARISON STUDY: CT scan of the cervical spine dated 05/13/2018. TECHNIQUE: CT scan of the cervical spine is performed from the skull base to the upper thoracic spine. Images are reviewed in the axial, sagittal, and coronal planes. IV contrast was not administered for this examination. A dose lowering technique was utilized adhering to the principles of ALARA. CT DOSE: 364.69 mGycm FINDINGS: Skeletal structures: The skeletal structures are osteopenic. There is no ev idence of fracture or subluxation involving the cervical spine. Vertebral body height and alignment are maintained. Small anterior osteophytes are seen throughout. Hyperlordosis is noted. The odontoid process and lateral masses are intact. The atlantoaxial articulation is preserved noting productive degenerative change. The spinous processes appear intact. There is moderate multilevel cervical spondylosis. Uncovertebral and facet arthropathy contribute to neural foraminal stenosis at several levels. Intervertebral discs: Moderate disc space narrowing is seen from C3 -C4 through C6-C7. Central canal: Posterior disc osteophyte complexes are seen from C3-C4 through C6-C7. This likely contributes to mild multilevel acquired compromise of the central canal. Soft tissues: The prevertebral and paraspinous soft tissues are within normal limits. A large calcified left lobe thyroid nodule is unchanged from previous and measures up to 1.6 cm. There is atherosclerotic calcification of the carotid bulbs. Calvarium: The visualized calvarium at the skull base appears intact. Brain parenchyma: Partially visualized brain parenchyma the skull base is within normal limits noting age-related involutional change. Sinuses and mastoids: The visualized paranasal sinuses are clear. There is a small left mastoid effusion. The right mastoid air cells are well pneumatized. Lung apices: Clear as visualized. IMPRESSION: 1. There is no evidence of fracture or subluxation involving the cervical spine. 2. Osteopenia and spondylotic change as above. Electronically signed by: Guillermo Galvez M.D. 03/28/2019 9:16 PM ECG Data Attestation: I personally reviewed and interpreted this ECG as follows: Indication: syncope Rate (beats per minute): 76 Rhythm: normal sinus Findings: + other (LVH); no PAC, no PVC, no ST depression and no ST elevation Blood Pressure Blood Pressure Findings: Low blood pressure Blood Pressure Disposition: further management by hospitalist Discharge Plan Visit Data *Final* Discharge Date/Time: 03/28/19 22:27 Chief Complaint: Neck Injury/Pain Stated Complaint: BLACKING OUT, BACK OF NECK PAIN ED Provider: Kendall Landon Discharge Problem: Near syncope, Elevated troponin, Hypotension Patient Disposition: Admitted As Inpatient Discharge Instructions Interventions: ED Discharge Assessment Last Done: 03/28/19 22:27 Discharge Problem: Hypotension Qualifiers: Hypotension type: unspecified hypotension type Qualified Code(s): I95.9 - Hypotension, unspecified The scribe's documentation has been prepared under my direction and personally reviewed by me in its entirety. I confirm that the note above accurately reflects all work, treatment, procedures, and medical decision making performed by me.
--- NOTE | 2019-03-29 01:51 | History and Physical Report ---
DATE OF ADMISSION: 03/28/2019 CHIEF COMPLAINT: Near syncope, fall. HISTORY OF PRESENT ILLNESS: This is an 89-year-old male with past medical history significant for gout, diaphragmatic hernia, chronic kidney disease stage III, benign prostatic hypertrophy, anemia and a history of vertigo who presents with near syncope and fall. He lives with his . He walks with the help of a walker. Son lives next door. Last night, he had an episode of diarrhea and today morning, he was a little bit shaky and he was feeling weak and slept the whole day, did not eat anything. Later in the day, he woke up and had a shower and sitting in a chair and called him to eat something when he got up and suddenly, he was falling down. His held him so that he did not hit his head. He did not lose his consciousness, but he was subsequently somewhat slightly out of it. The son came and he tried to slowly get him up, but when he stood up, again he seemed to be having episode of near passing out so they brought him here. Here, workup is so far unrevealing except mild elevation of troponin. There were also complaints of neck pain. He has a history of chronic neck pain. He has a history of orthostatic hypotension and falls in the past also. In the Emergency Room, his orthostatics were positive. Denies any chest pain. No shortness of breath. No cough. No headache. No blurred vision. No sore throat. No difficulty swallowing. Appetite is not great. He is losing weight as per the lately. No abdominal pain. No nausea. No vomiting. Normal bladder movements. No burning micturition. No swelling in the legs. Currently, resting comfortably and hemodynamically stable. ALLERGIES: ALLOPURINOL, CHLORTHALIDONE AND NORVASC. PAST MEDICAL HISTORY: As mentioned above. PAST SURGICAL HISTORY: Colonoscopy, esophagogastroduodenoscopy and inguinal hernia repair. MEDICATIONS: Febuxostat 40 mg 2 tablets daily, Proscar 5 mg p.o. daily, aspirin 81 mg p.o. daily, vitamin D 2000 units p.o. daily, Lasix 20 mg p.o. daily, multivitamins with minerals one capsule b.i.d., omeprazole 20 mg p.o. daily, Toprol XL 25 mg p.o. daily, nifedipine ER 30 mg p.o. daily, ferrous sulfate 325 mg p.o. daily, Imodium 2 mg as needed for diarrhea and hydroxyzine 25 mg p.o. q. 6 hours as needed for itching. FAMILY HISTORY: Significant for brother has hypertension. Mother has hypertension. Sister has hypertension. SOCIAL HISTORY: and lives with his . Former smoker, quit in 1979. No alcohol use. No drug use. REVIEW OF SYMPTOMS: As per HPI. Rest of review of symptoms negative. PHYSICAL EXAMINATION: GENERAL: The patient is alert and oriented, not in acute distress. VITAL SIGNS: Temperature 36.3, pulse 75, respiratory rate 15, blood pressure 131/58 and oxygen 94% on 1 liter. HEENT: No pallor. No icterus. Pupils are equal, round and reactive to light. Extraocular muscles are intact. NECK: No JVD. No neck masses. No carotid bruit. Neck is supple. CARDIOVASCULAR: S1, S2 heard. Regular rate and rhythm. No murmur. No gallop. RESPIRATORY SYSTEM: Normal AP diameter. No thyromegaly. No wheezing. No crackles. ABDOMEN: Soft. Bowel sounds present. Nontender. No distention. CENTRAL NERVOUS SYSTEM: Cranial nerves II through XII grossly intact. Coordination of movements normal. Nonfocal. EXTREMITIES: No edema. No erythema. LABORATORY DATA: WBC 17, hemoglobin 11.4, hematocrit 33.7 and platelets 198. Sodium 134, potassium 5, chloride 103, bicarbonate 25, BUN 52, creatinine 1.9, serum glucose 139, calcium 8.9, magnesium 1.5, total bilirubin 0.7, AST 14, ALT 17 and alkaline phosphatase 90. Troponin I of 0.171. Thyroid stimulating hormone 1.14. CT of the head, no acute findings. CT of the cervical spine, positive spondylotic change otherwise no acute findings. Chest x-ray, small left pleural effusions and mild cardiomegaly. Electrocardiogram, normal sinus rhythm with rate of [address] changes seen. ASSESSMENT AND PLAN: This is an 89-year-old male who presents with near syncope and fall. 1. Near syncope and fall and history of orthostatic hypotension in the past with orthostatic hypotension in the Emergency Room, had episode of diarrhea last night and was feeling weak and tired in the morning and he did not eat anything in the morning. We will place him on gentle fluids. Holding lasix. Check orthostatics. Check echocardiogram. Monitor on tele floor. 2. Mild elevation of troponin. Denies any chest pain. No shortness of breath. Electrocardiogram with no acute findings. We will trend enzymes, echocardiogram, monitor on tele and consult cardiology for further recommendations. Low probability for pulmonary embolism at this time. 3. Hypomagnesemia. We will replace. 4. Leukocytosis. We will get urinalysis. Could be stress reaction. If urinalysis is positive, we will start on antibiotics. Follow the repeat laboratories in a.m. 5. Chronic kidney stage III with baseline creatinine ranging from 1.6 to 1.9. We will follow the repeat laboratories in a.m.Lasix is on hold. 6. History of gout. Continue his home medication of febuxostat. 7. History of benign prostatic hypertrophy. Continue his Proscar. 8. History of cerebrovascular accident. On aspirin. 9. History of hypertension. On Toprol-XL, nifedipine . Lasix on hold. We will monitor blood pressure. 10. History of anemia. On iron pills, stable. 11. Gastroesophageal reflux disease. On proton pump inhibitor. 12. Deep venous thrombosis prophylaxis. Sequential compression devices for now. 13. Disposition. Observe in tele floor. Physical therapy and occupational therapy prior to discharge. Social service to help with discharge planning. Level 1 full code as per my discussion with the family. RUDOLPH
[2019-03-29 06:25] LABS: Basophils # (auto) 0.01 K/uL (0-0.2); Basophils % (auto) 0.1 %; Eosinophils # (auto) 0.14 K/uL (0-0.5); Eosinophils % (auto) 1.5 %; Hematocrit (blood only) 28.9 % (42-52); Hemoglobin 9.7 g/dL (14.0-18.0); Immature Granulocytes # (auto) 0.02 K/uL (0.00-0.02); Immature Granulocytes % (auto) 0.2 %; Lymphocytes # (auto) 0.88 K/uL (1.2-3.4); Lymphocytes % (auto) 9.1 %; Mean Corpuscular Hgb Conc 33.6 g/dL (32-36); Mean Corpuscular Volume 88.1 fL (80-100); Mean Platelet Volume 9.1 fL (7.4-10.4); Monocytes # (auto) 0.66 K/uL (0.11-0.59); Monocytes % (auto) 6.8 %; Neutrophils # (auto) 7.94 K/uL (1.4-6.5); Neutrophils % (auto) 82.3 %; Platelet Count 149 K/uL (130-400); RDW Coefficient of Variation 12.9 % (11.5-14.5); Red Blood Count 3.28 M/uL (4.7-6.1); White Blood Count 9.65 K/uL (4.8-10.8)
[2019-03-29 06:57] LABS: BUN Creatinine Ratio 32.4 (10-20); Calcium 8.5 mg/dl (8.5-10.1); Creatinine Clr Calc Pharmacy 29.4 ml/min; Est GFR (Non-African American) 43.1; Magnesium 2.1 mg/dl (1.8-2.4); Potassium 4.6 mmol/L (3.5-5.1)
[2019-03-29] MEDS: METOPROLOL TARTRATE 25 MG TAB PO SCH (08:09)
[2019-03-29] MEDS: PANTOprazole 40 MG TAB PO SCH (08:09)
[2019-03-29] MEDS: CHOLECALCIFEROL 1,000 UNITS TAB PO SCH (08:09)
[2019-03-29] MEDS: NIFEdipine EXTENDED REL 30 MG TABCR PO SCH (08:09)
[2019-03-29] MEDS: FERROUS SULFATE 325 MG TAB PO SCH (08:09)
[2019-03-29] MEDS: FEBUXOSTAT 40 MG TABLET PO SCH ×2 (08:09→20:08)
[2019-03-29] MEDS: ASPIRIN 81 MG ECTAB PO SCH (08:09)
--- NOTE | 2019-03-29 08:57 | Hospitalist Progress Note ---
Date of Service March 29, 2019 Assessment & Plan (1) Near syncope: This is an 89-year-old male who presents with near syncope and fall. Near Syncope positive orthostatic vitals -Near syncope and fall and history of orthostatic hypotension in the past - as per History/Physical on admission: had a shower and sitting in a chair and called him to eat something when he got up and suddenly, he was falling down. His held him so that he did not hit his head. He did not lose his consciousness, but he was subsequently somewhat slightly out of it. The son came and he tried to slowly get him up, but when he stood up, again he seemed to be having episode of near passing out so they brought him here -orthostatic hypotension in the Emergency Room -patient received IV fluids -03/29/19: Patient had IV fluids held this AM. Nurse reported positive orthostatics when fluids are held; will continue gentle IV fluids as 50 cc/hr for now. will obtain PT/OT to assess ambulation. hold home dose lasix History of hypertension -On Toprol-XL, nifedipine -hold Lasix Mild elevation of troponin -troponin 0.171 on presentation and downtrended -as per history and patient, no chest pain -no acute telemetry events as of 03/29/19 -03/29/19 resting echocardiogram 60 to 65 % and no segmental left ventricular wall motion abnormalities -cardiology consult was requested by admitting hospitalist -will attempt to titrate off oxygen nasal cannula Hypomagnesemia -serum magnesium 1.5 on admission -after repletion serum magnesium is 2.1 Leukocytosis -downtrended with IV fluids -Urine analysis is negative Chronic kidney stage III with baseline creatinine ranging from 1.6 to 1.9 -renal function being monitored History of gout -no gout flare -Continue febuxostat History of benign prostatic hypertrophy -Continue Proscar. Gastroesophageal reflux disease -On proton pump inhibitor. History of cerebrovascular accident in the past -continue aspirin -PT/OT evaluations History of anemia -HGB downtrended with IV fluids. likely hemodilutional -will send FOBT -On iron pills Deep venous thrombosis prophylaxis. -Sequential compression devices for now. Subjective Patient had IV fluids held this AM. Nurse reported positive orthostatics when fluids are held. Patient awake and alert and cooperative on exam. breathing on nasal cannula. patient reports he does not feel shortness of breath. denies dizziness at rest or with sitting up while on the bed. no chest pain. no abdomen pain. patient denies vomiting. no abdomen pain. Physical Exam Constitutional: WD/WN, vitals as above Eyes: PERRL, conjunctivae normal, anicteric sclerae EOM intact bilaterally ENMT: external ear and nose normal, oropharynx normal Neck: trachea midline, no thyromegaly normal visual inspection Respiratory: normal respiratory effort, lungs clear to auscultation Cardiovascular: RRR, no murmur, no edema Gastrointestinal (Abdomen): normal bowel sounds, soft, nontender, no hepatosplenomegaly Musculoskeletal: Head/Neck/Chest: normocephalic and head atraumatic Neurologic: PERRL, EOMI, accommodation nl, no face palsy, no dysarthria CN's II-XI intact bilaterally Psychiatric: A+Ox3, euthymic affect Results & Data Vital Signs (Past 12 Hours) Vital Signs Temp Pulse Pulse Resp BP BP Pulse Ox 03/29/19 08:00 36.7 C 84 22 94 03/29/19 03:47 36.4 C L 71 18 142/70 H 99 03/28/19 22:48 36.4 C L 86 16 160/70 H 96 03/28/19 22:01 79 25 H 92 03/28/19 22:00 79 23 141/77 H 90 03/28/19 21:31 73 22 134/58 L 97 03/28/19 21:30 74 26 H 95 03/28/19 21:22 75 17 93 03/28/19 21:21 75 15 139/46 L 94 03/28/19 21:01 75 17 131/58 L 94 03/28/19 21:00 75 18 93
[2019-03-29] MEDS ORDERED: SODIUM CHLORIDE 0.9% 500 ML IV SCH (09:00)
[2019-03-29] MEDS ORDERED: FOOD SUPPLEMT LACTOSE REDUCED PO SCH (09:00)
[2019-03-29] MEDS: CEROVITE ADV FORMULA TAB PO SCH ×2 (09:40→20:09)
--- NOTE | 2019-03-29 11:51 | Consultation Report ---
DATE OF CONSULTATION: 03/29/2019 INPATIENT CARDIOLOGY CONSULTATION CONSULTATION REQUESTED BY: Jose Daniel Basurto MD. REASON FOR CONSULTATION: Near syncope. HISTORY OF PRESENT ILLNESS: Mr. Blanco is a very pleasant 89-year-old gentleman who does not follow with a behavioral scientist on a regular basis. He presented to [facility] on 03/28/2019 after a report of a fall and weakness at home. Apparently, the patient has not been feeling well lately and has been having some issues with his stomach and some diarrhea. He had some diarrhea the day before presentation and was not eating anything and not drinking much either. He was very weak and reportedly slept most of the day. At one point yesterday, his called him to come in and eat something, when he stood up, he got lightheaded and was lowered to the ground. He did not lose consciousness and his held him, so he did not hit his head. His son came over and tried to help get him up, but again he was lightheaded upon standing and nearly syncopized but did not lose consciousness. He presented to [facility] Emergency Department, had positive orthostatics and was started on IV fluids. Laboratory testing including a troponin level showed a minimal elevation and cardiology was consulted. Currently, the patient is resting comfortably, states he is feeling well. His energy is improving. He ate a full breakfast this morning and denies any complaints of chest pain, shortness of breath, palpitations or recurrent lightheadedness. PAST SURGICAL HISTORY: 1. Colonoscopies. 2. Upper endoscopies. 3. Hernia repair. MEDICAL ILLNESSES: 1. Stage III chronic kidney disease. 2. BPH. 3. Chronic anemia. 4. Gout. 5. Vertigo. FAMILY HISTORY: Noncontributory. SOCIAL HISTORY: Denies any alcohol, tobacco or recreational drug use. He is and lives at home. His son lives next door. REVIEW OF SYSTEMS: As per HPI, all other review of systems reviewed and negative at this time. ALLERGIES: 1. ALLOPURINOL. 2. CHLORTHALIDONE. 3. NORVASC. MEDICATIONS AN OUTPATIENT: 1. Aspirin 81 mg daily. 2. Proscar daily. 3. Lasix 20 mg p.r.n. 4. Metoprolol succinate 25 mg daily. 5. Nifedipine ER 30 mg daily. 6. Imodium p.r.n. 7. Iron. PHYSICAL EXAMINATION: VITALS: Temperature 36.7, pulse 84, respiratory rate 12, blood pressure 142/70. Orthostatics remain positive. GENERAL: Awake, alert, oriented x3, in no acute distress. HEENT: Normocephalic, atraumatic. Pupils equal, round, reactive to light and accommodation. Extraocular muscles intact. Anicteric sclerae. Moist mucous membranes. NECK: No JVD, no bruit. CARDIOVASCULAR: Regular. Positive S4. Normal S1 and S2. No S3. Slight 2/6 mid to late systolic ejection murmur greatest at the right sternal border second intercostal space with radiation to bilateral carotids. No rubs. PULMONARY: Clear to auscultation bilaterally. No rales, rhonchi, or wheezing. ABDOMEN: Bowel sounds x4, soft. No rebound, guarding, or tenderness. No organomegaly. EXTREMITIES: No clubbing, cyanosis or edema. +2 pedal pulses bilaterally. SKIN: Warm and dry. TEST RESULTS: Laboratory studies from the Emergency Room show sodium 134, potassium 5, BUN 52, creatinine 1.97. Troponin of 0.17. A 2D echocardiogram was read as small underfilled LV chamber size, moderate concentric LVH, normal LV systolic function, EF 60%-65%, no segmental left ventricular wall motion abnormalities are noted, grade 1 diastolic dysfunction, mild aortic valve sclerosis without stenosis, mild left atrial enlargement. IMPRESSION: 1. Orthostatic near syncope. 2. Minimal troponin elevation in the setting of volume depletion and chronic kidney disease with normal wall motion on echocardiogram. RECOMMENDATIONS: It was my pleasure to see Mr. Blanco in consultation today. From a cardiac standpoint, I do not see any active ischemia and his minimal troponin elevation is easily explained by his volume depletion and chronic kidney disease. So, no further cardiac testing or intervention is necessary at this time. IV fluids per the primary team. No cardiac followup is necessary.
[2019-03-29] MEDS ORDERED: MIDODRINE HCL 2.5 MG TAB PO STA (13:51)
[2019-03-29] MEDS: MIDODRINE HCL 2.5 MG TAB PO SCH (16:59)
[2019-03-29] MEDS: FINASTERIDE 5 MG TAB PO SCH (20:08)
[2019-03-29] MEDS: hydrOXYzine HCl 10 MG TAB PO SCH (20:08)
[2019-03-30 06:41] LABS: Basophils # (auto) 0.02 K/uL (0-0.2); Basophils % (auto) 0.2 %; Eosinophils # (auto) 0.31 K/uL (0-0.5); Eosinophils % (auto) 3.4 %; Hemoglobin 9.7 g/dL (14.0-18.0); Immature Granulocytes # (auto) 0.01 K/uL (0.00-0.02); Immature Granulocytes % (auto) 0.1 %; Lymphocytes # (auto) 0.98 K/uL (1.2-3.4); Lymphocytes % (auto) 10.8 %; Mean Corpuscular Hgb Conc 33.4 g/dL (32-36); Mean Corpuscular Volume 88.7 fL (80-100); Mean Platelet Volume 9.3 fL (7.4-10.4); Monocytes # (auto) 0.83 K/uL (0.11-0.59); Monocytes % (auto) 9.1 %; Neutrophils # (auto) 6.95 K/uL (1.4-6.5); Neutrophils % (auto) 76.4 %; Platelet Count 170 K/uL (130-400); RDW Standard Deviation 41.8 fL (36.4-46.3); Red Blood Count 3.27 M/uL (4.7-6.1)
[2019-03-30 07:17] LABS: Albumin Globulin Ratio 0.6 (0.9-2); Albumin Level 2.7 gm/dl (3.4-5.0); BUN Creatinine Ratio 23.5 (10-20); Bilirubin,Total 0.5 mg/dl (0.2-1); Calcium 8.8 mg/dl (8.5-10.1); Creatinine Clr Calc Pharmacy 33.8 ml/min; Est GFR (African American) 58.8; Est GFR (Non-African American) 50.7; Globulin 4.2 gm/dl (2.5-4.0); Magnesium 1.7 mg/dl (1.8-2.4); Potassium 4.6 mmol/L (3.5-5.1); Total Protein 6.9 gm/dl (6.4-8.2)
[2019-03-30] MEDS: MIDODRINE HCL 2.5 MG TAB PO SCH ×3 (09:18→17:47)
[2019-03-30] MEDS: ASPIRIN 81 MG ECTAB PO SCH (09:18)
[2019-03-30] MEDS: FERROUS SULFATE 325 MG TAB PO SCH (09:18)
[2019-03-30] MEDS: FEBUXOSTAT 40 MG TABLET PO SCH ×2 (09:19→19:50)
[2019-03-30] MEDS: CEROVITE ADV FORMULA TAB PO SCH ×2 (09:19→19:51)
--- NOTE | 2019-03-30 09:46 | Hospitalist Progress Note ---
Date of Service March 30, 2019 Assessment & Plan (1) Near syncope: This is an 89-year-old male who presents with near syncope and fall. Near Syncope positive orthostatic vitals -Near syncope and fall and history of orthostatic hypotension in the past - as per History/Physical on admission: had a shower and sitting in a chair and called him to eat something when he got up and suddenly, he was falling down. His held him so that he did not hit his head. He did not lose his consciousness, but he was subsequently somewhat slightly out of it. The son came and he tried to slowly get him up, but when he stood up, again he seemed to be having episode of near passing out so they brought him here -orthostatic hypotension in the Emergency Room -patient received IV fluids -Patient has been transitioned off IV fluids since 03/29/19 and then transitioned to midodrine 2.5 mg TID. Continues to have orthostatic vitals as of 03/30/19 (149/72 when lying down, 138/64 when standing, 104/68 when standing). will increase midodrine to 5 mg TID -continue PT/OT evaluations History of hypertension -On Toprol-XL, nifedipine -hold Lasix Mild elevation of troponin -troponin 0.171 on presentation and downtrended -as per history and patient, no chest pain -no acute telemetry events as of 03/29/19 -03/29/19 resting echocardiogram 60 to 65 % and no segmental left ventricular wall motion abnormalities -cardiology consult was requested by admitting hospitalist: Minimal troponin elevation in the setting of volume depletion and chronic kidney disease with normal wall motion on echocardiogram and no acute concerns for the troponin levels -patient had 7 beat run of Ventricular tachycardia on 4:30 AM of 03/30/19; no other telemetry events so far Has been titrated off supplemental oxygen during the daytimes however nursing staff reports patient needing some supplementary oxygen at night as patient's oxygen saturation in the high 80s when sleeping on room air will do official nocturnal pulse oximetry study Hypomagnesemia -serum magnesium 1.5 on admission -after repletion serum magnesium is 2.1 -serum magnesium 1.7 on 03/30/19 is 1.7, will give IV and oral magnesium -perhaps, magnesium low due to GI losses, will check stool culture and and c.difficile Leukocytosis -downtrended with IV fluids -Urine analysis is negative Chronic kidney stage III with baseline creatinine ranging from 1.6 to 1.9 -renal function being monitored, creatinine has downtrended to 1.25 History of gout -no gout flare -Continue febuxostat History of benign prostatic hypertrophy -Continue Proscar. Gastroesophageal reflux disease -On proton pump inhibitor. History of cerebrovascular accident in the past -continue aspirin -PT/OT evaluations History of anemia -HGB downtrended with IV fluids. likely hemodilutional -Hgb stable as 9.1 on 03/29/19 and 03/30/19 -will send FOBT when next bowel movement -On iron pills Deep venous thrombosis prophylaxis. -Sequential compression devices for now Patient's son Luke Blanco [phone] Subjective Patient with episode fo diarrhea as per nurse. continues to have orthostatic hypotension. when asked at bedside whether patient had felt dizzy, he reported "not as much." 7 beat run of Ventricular tachycardia at 4:30 AM. patient denies chest pain or palpitations. denies abdomen pain. on room air. he denies shortness of breath but nursing staff reports patient needing some supplementary oxygen at night as patient's oxygen saturation in the high 80s when sleeping on room air Physical Exam Constitutional: WD/WN, vitals as above Eyes: PERRL, conjunctivae normal, anicteric sclerae EOM intact bilaterally ENMT: external ear and nose normal, oropharynx normal Neck: trachea midline, no thyromegaly normal visual inspection Respiratory: normal respiratory effort, lungs clear to auscultation Cardiovascular: RRR, no murmur, no edema Gastrointestinal (Abdomen): normal bowel sounds, soft, nontender, no hepatosplenomegaly Musculoskeletal: Head/Neck/Chest: normocephalic and head atraumatic Neurologic: PERRL, EOMI, accommodation nl, no face palsy, no dysarthria CN's II-XI intact bilaterally Psychiatric: A+Ox3, euthymic affect Results & Data Vital Signs (Past 12 Hours) Vital Signs Temp Pulse Resp BP Pulse Ox 03/30/19 08:06 36.7 C 82 18 149/72 H 98 03/30/19 04:23 36.7 C 18 96 03/29/19 22:35 37 C 81 18 134/78 95
[2019-03-30] MEDS: NIFEdipine EXTENDED REL 30 MG TABCR PO SCH (11:18)
[2019-03-30] MEDS: MAGNESIUM OXIDE 400 MG TAB PO SCH (11:18)
[2019-03-30] MEDS: CHOLECALCIFEROL 1,000 UNITS TAB PO SCH (11:18)
[2019-03-30] MEDS: PANTOprazole 40 MG TAB PO SCH (11:18)
[2019-03-30] MEDS: MAGNESIUM SULFATE / D5W 1 GM/100 ML BAG IV SCH ×2 (11:18→12:20)
[2019-03-30] MEDS: METOPROLOL TARTRATE 25 MG TAB PO SCH (11:18)
[2019-03-30] MEDS: hydrOXYzine HCl 10 MG TAB PO SCH (19:50)
[2019-03-30] MEDS: FINASTERIDE 5 MG TAB PO SCH (19:50)
[2019-03-31] MEDS: ASPIRIN 81 MG ECTAB PO SCH (07:57)
[2019-03-31] MEDS: FERROUS SULFATE 325 MG TAB PO SCH (08:00)
[2019-03-31] MEDS: FEBUXOSTAT 40 MG TABLET PO SCH (08:00)
[2019-03-31] MEDS: NIFEdipine EXTENDED REL 30 MG TABCR PO SCH (08:01)
[2019-03-31] MEDS: MAGNESIUM OXIDE 400 MG TAB PO SCH (08:01)
[2019-03-31] MEDS: CEROVITE ADV FORMULA TAB PO SCH (08:01)
[2019-03-31] MEDS: PANTOprazole 40 MG TAB PO SCH (08:01)
[2019-03-31] MEDS: CHOLECALCIFEROL 1,000 UNITS TAB PO SCH (08:02)
[2019-03-31] MEDS: METOPROLOL TARTRATE 25 MG TAB PO SCH (08:02)
[2019-03-31] MEDS: MIDODRINE HCL 2.5 MG TAB PO SCH ×2 (08:03→11:16)
[2019-03-31 10:01] LABS: Basophils # (auto) 0.02 K/uL (0-0.2); Basophils % (auto) 0.3 %; Eosinophils # (auto) 0.34 K/uL (0-0.5); Eosinophils % (auto) 4.9 %; Hematocrit (blood only) 30.4 % (42-52); Hemoglobin 10.1 g/dL (14.0-18.0); Lymphocytes # (auto) 0.72 K/uL (1.2-3.4); Lymphocytes % (auto) 10.4 %; Mean Corpuscular Volume 89.1 fL (80-100); Mean Platelet Volume 9.1 fL (7.4-10.4); Monocytes # (auto) 0.64 K/uL (0.11-0.59); Monocytes % (auto) 9.2 %; Neutrophils % (auto) 75.2 %; Platelet Count 186 K/uL (130-400); RDW Coefficient of Variation 12.9 % (11.5-14.5); RDW Standard Deviation 41.6 fL (36.4-46.3); Red Blood Count 3.41 M/uL (4.7-6.1); White Blood Count 6.92 K/uL (4.8-10.8)
[2019-03-31 10:08] LABS: Mean Corpuscular Hgb Conc 33.2 g/dL (32-36)
[2019-03-31 10:20] LABS: BUN Creatinine Ratio 16.4 (10-20); Calcium 8.9 mg/dl (8.5-10.1); Creatinine Clr Calc Pharmacy 30.6 ml/min; Est GFR (African American) 52.2; Magnesium 1.9 mg/dl (1.8-2.4); Potassium 3.9 mmol/L (3.5-5.1)
--- NOTE | 2019-03-31 10:43 | Hospitalist Progress Note ---
Date of Service March 31, 2019 Assessment & Plan (1) Near syncope: This is an 89-year-old male who presents with near syncope and fall. near syncope/fall, orthostatic hypotension -positive orthostatic vitals -Near syncope and fall and history of orthostatic hypotension in the past - as per History/Physical on admission: had a shower and sitting in a chair and called him to eat something when he got up and suddenly, he was falling down. His held him so that he did not hit his head. He did not lose his consciousness, but he was subsequently somewhat slightly out of it. The son came and he tried to slowly get him up, but when he stood up, again he seemed to be having episode of near passing out so they brought him here -orthostatic hypotension in the Emergency Room -patient received IV fluids -Patient has been transitioned off IV fluids since 03/29/19 and then transitioned to midodrine 2.5 mg TID. Continues to have orthostatic vitals as of 03/30/19 (149/72 when lying down, 138/64 when standing, 104/68 when standing). will increase midodrine to 5 mg TID -orthostatic hypotension still present on 03/31/19 but patient is clinically stable and would not increase midodrine dosing at this time. Patient has been counseled on slowly getting up from sitting to standing positions or when changing positions from laying down to sitting up -Patient should be on midodrine 5 mg three times a day and have blood pressures in different standing, sitting, and laying down checked by primary care doctor. [facility] [address] [place] [address] -completed PT/OT evaluations History of hypertension -On Toprol-XL, nifedipine -Lasix was held during hospital stay -Patient may hold home dose Lasix (Furosemide) 20 mg until follow up with primary care doctor Mild elevation of troponin -troponin 0.171 on presentation and downtrended -as per history and patient, no chest pain -no acute telemetry events as of 03/29/19 -03/29/19 resting echocardiogram 60 to 65 % and no segmental left ventricular wall motion abnormalities -cardiology consult was requested by admitting hospitalist: Minimal troponin elevation in the setting of volume depletion and chronic kidney disease with normal wall motion on echocardiogram and no acute concerns for the troponin levels -patient had 7 beat run of Ventricular tachycardia on 4:30 AM of 03/30/19; no other telemetry events so far -03/31/19 normal telemetry suspected obstructive sleep apnea -Had been titrated off supplemental oxygen during the daytimes in hospital stay -however nursing staff reports patient needing some supplementary oxygen at night as patient's oxygen saturation in the high 80s when sleeping on room air -official nocturnal pulse oximetry study performed -Patient will need to be on oxygen 2 liters/min with sleep at night because patient has been evaluated in the hospital to have oxygen desaturation to 85% when on room air. Patient should follow up with primary care doctor for possible obstructive sleep apnea evaluation (as per tactical air control party manager the oxygen is [facility] approved and patient will get the oxygen delivered to home) Hypomagnesemia -serum magnesium 1.5 on admission -after repletion serum magnesium is 2.1 -serum magnesium 1.7 on 03/30/19 is 1.7, given IV and oral magnesium, serum magnesium is 1.9 on 03/31/19 -Patient should be on magnesium 400 mg daily and have serum magnesium levels followed by primary care doctor. Prescription electronically sent to [facility] [address] [place] [id number] Leukocytosis -downtrended with IV fluids -Urine analysis is negative Chronic kidney stage III with baseline creatinine ranging from 1.6 to 1.9 -renal function being monitored, creatinine has downtrended to 1.25 History of gout -no gout flare -Continue febuxostat History of benign prostatic hypertrophy -Continue Proscar. Gastroesophageal reflux disease -On proton pump inhibitor. History of cerebrovascular accident in the past -continue aspirin -PT/OT evaluations History of anemia -HGB downtrended with IV fluids. likely hemodilutional -Hgb stable as 9.1 on 03/29/19 and 03/30/19 -FOBT is negative -Patient should continue home dose iron supplements for anemia (Hgb on discharge is 10) Patient's son Luke Blanco [phone] Discharge Diagnosis near syncope/fall, orthostatic hypotension. Hypomagnesemia, elevated troponin, chronic kidney disease stage 3, suspected obstructive sleep apnea, anemia Discharge Instructions Patient is [facility] from [facility] to Home with [facility] approved home health visits Patient will need to be on oxygen 2 liters/min with sleep at night because patient has been evaluated in the hospital to have oxygen desaturation to 85% when on room air. Patient should follow up with primary care doctor for possible obstructive sleep apnea evaluation (as per tactical air control party manager the oxygen is [facility] approved and patient will get the oxygen delivered to home) Patient may hold home dose Lasix (Furosemide) 20 mg until follow up with primary care doctor Patient should be on magnesium 400 mg daily and have serum magnesium levels foll owed by primary care doctor. Prescription electronically sent to [facility] [address] [place] [address] Patient should be on midodrine 5 mg three times a day and have blood pressures in different standing, sitting, and laying down checked by primary care doctor. [facility] [address] [place] [address] Patient has been counseled on slowly getting up from sitting to standing positions or when changing positions from laying down to sitting up Patient should continue home dose iron supplements for anemia (Hgb on discharge is 10) Follow with [facility] clinic primary care 04/03/2019 9:20 AM Provider Estefani Manley PA-C [facility] 07/16/2019 8:00 AM Provider Kendall Barraza Jr., PA-C [facility] Subjective Patient still with blood pressures of orthostatics. But no dizziness. No falls. no acute telemetry events overnight. blood counts stable. patient had a loose bowel movement. no abdomen pain. no chest plan. no shortness of breath. discharge plans and follow ups discussed with patient and his Physical Exam Constitutional: WD/WN, vitals as above Eyes: PERRL, conjunctivae normal, anicteric sclerae EOM intact bilaterally ENMT: external ear and nose normal, oropharynx normal Neck: trachea midline, no thyromegaly normal visual inspection Respiratory: normal respiratory effort, lungs clear to auscultation Cardiovascular: RRR, no murmur, no edema Gastrointestinal (Abdomen): normal bowel sounds, soft, nontender, no hepatosplenomegaly Musculoskeletal: Head/Neck/Chest: normocephalic and head atraumatic Neurologic: PERRL, EOMI, accommodation nl, no face palsy, no dysarthria CN's II-XI intact bilaterally Psychiatric: A+Ox3, euthymic affect Results & Data Vital Signs (Past 12 Hours) Vital Signs Temp Pulse Pulse Resp BP Pulse Ox Pulse Ox 03/31/19 10:39 74 20 140/65 95 03/31/19 09:49 94 03/31/19 07:52 89 89/47 L 03/31/19 07:50 36.6 C 86 20 113/65 95 03/31/19 03:59 36.7 C 71 19 132/65 94 03/30/19 23:46 36.6 C 74 23 147/65 H 96 03/30/19 23:24 68 85 L
--- NOTE | 2019-03-31 10:53 | Discharge Summary ---
Date of Service March 31, 2019 Admission HPI Per Admitting Provider DATE OF ADMISSION: 03/28/2019 CHIEF COMPLAINT: Near syncope, fall. HISTORY OF PRESENT ILLNESS: This is an 89-year-old male with past medical history significant for gout, diaphragmatic hernia, chronic kidney disease stage III, benign prostatic hypertrophy, anemia and a history of vertigo who presents with near syncope and fall. He lives with his . He walks with the help of a walker. Son lives next door. Last night, he had an episode of diarrhea and today morning, he was a little bit shaky and he was feeling weak and slept the whole day, did not eat anything. Later in the day, he woke up and had a shower and sitting in a chair and called him to eat something when he got up and suddenly, he was falling down. His held him so that he did not hit his head. He did not lose his consciousness, but he was subsequently somewhat slightly out of it. The son came and he tried to slowly get him up, but when he stood up, again he seemed to be having episode of near passing out so they brought him here. Here, workup is so far unrevealing except mild elevation of troponin. There were also complaints of neck pain. He has a history of chronic neck pain. He has a history of orthostatic hypotension and falls in the past also. In the Emergency Room, his orthostatics were positive. Denies any chest pain. No shortness of breath. No cough. No headache. No blurred vision. No sore throat. No difficulty swallowing. Appetite is not great. He is losing weight as per the lately. No abdominal pain. No nausea. No vomiting. Normal bladder movements. No burning micturition. No swelling in the legs. Currently, resting comfortably and hemodynamically stable. Admission Exam Per Admitting Provider PHYSICAL EXAMINATION: GENERAL: The patient is alert and oriented, not in acute distress. VITAL SIGNS: Temperature 36.3, pulse 75, respiratory rate 15, blood pressure 131/58 and oxygen 94% on 1 liter. HEENT: No pallor. No icterus. Pupils are equal, round and reactive to light. Extraocular muscles are intact. NECK: No JVD. No neck masses. No carotid bruit. Neck is supple. CARDIOVASCULAR: S1, S2 heard. Regular rate and rhythm. No murmur. No gallop. RESPIRATORY SYSTEM: Normal AP diameter. No thyromegaly. No wheezing. No crackles. ABDOMEN: Soft. Bowel sounds present. Nontender. No distention. CENTRAL NERVOUS SYSTEM: Cranial nerves II through XII grossly intact. Coordination of movements normal. Nonfocal. EXTREMITIES: No edema. No erythema. Principal Diagnosis near syncope/fall, orthostatic hypotension. Hypomagnesemia, elevated troponin, chronic kidney disease stage 3, suspected obstructive sleep apnea, anemia Discharge Exam Constitutional WD/WN, vitals as above Eyes PERRL, conjunctivae normal, anicteric sclerae EOM intact bilaterally ENMT external ear and nose normal, oropharynx normal Neck trachea midline, no thyromegaly normal visual inspection Respiratory normal respiratory effort, lungs clear to auscultation Cardiovascular RRR, no murmur, no edema Gastrointestinal (Abdomen) normal bowel sounds, soft, nontender, no hepatosplenomegaly Musculoskeletal Head/Neck/Chest: normocephalic and head atraumatic Neurologic PERRL, EOMI, accommodation nl, no face palsy, no dysarthria CN's II-XI intact bilaterally Psychiatric A+Ox3, euthymic affect Discharge Data Allergies Allergy/AdvReac Type Severity Reaction Status Date / Time No Known Drug Allergies Allergy Unknown none Verified 03/28/19 22:00 Consultations 03/28/19 21:05 ED Decision to Admit Stat 03/28/19 22:38 Consult Case Management - Discharge Planning Routine 03/29/19 08:00 Consult Cardiology Routine Ordered Studies 03/28/19 20:06 CT cervical spine wo con Stat CT head/brain wo con Stat Hospital Course (1) Near syncope: This is an 89-year-old male who presents with near syncope and fall. near syncope/fall, orthostatic hypotension -positive orthostatic vitals -Near syncope and fall and history of orthostatic hypotension in the past - as per History/Physical on admission: had a shower and sitting in a chair and called him to eat something when he got up and suddenly, he was falling down. His held him so that he did not hit his head. He did not lose his consciousness, but he was subsequently somewhat slightly out of it. The son came and he tried to slowly get him up, but when he stood up, again he seemed to be having episode of near passing out so they brought him here -orthostatic hypotension in the Emergency Room -patient received IV fluids -Patient has been transitioned off IV fluids since 03/29/19 and then transitioned to midodrine 2.5 mg TID. Continues to have orthostatic vitals as of 03/30/19 (149/72 when lying down, 138/64 when standing, 104/68 when standing). will increase midodrine to 5 mg TID -orthostatic hypotension still present on 03/31/19 but patient is clinically stable and would not increase midodrine dosing at this time. Patient has been counseled on slowly getting up from sitting to standing positions or when changing positions from laying down to sitting up -Patient should be on midodrine 5 mg three times a day and have blood pressures in different standing, sitting, and laying down checked by primary care doctor. [facility] [address] [place] [id number] -completed PT/OT evaluations History of hypertension -On Toprol-XL, nifedipine -Lasix was held during hospital stay -Patient may hold home dose Lasix (Furosemide) 20 mg until follow up with primary care doctor Mild elevation of troponin -troponin 0.171 on presentation and downtrended -as per history and patient, no chest pain -no acute telemetry events as of 03/29/19 -03/29/19 resting echocardiogram 60 to 65 % and no segmental left ventricular wall motion abnormalities -cardiology consult was requested by admitting hospitalist: Minimal troponin elevation in the setting of volume depletion and chronic kidney disease with normal wall motion on echocardiogram and no acute concerns for the troponin levels -patient had 7 beat run of Ventricular tachycardia on 4:30 AM of 03/30/19; no other telemetry events so far -03/31/19 normal telemetry suspected obstructive sleep apnea -Had been titrated off supplemental oxygen during the daytimes in hospital stay -however nursing staff reports patient needing some supplementary oxygen at night as patient's oxygen saturation in the high 80s when sleeping on room air -official nocturnal pulse oximetry study performed -Patient will need to be on oxygen 2 liters/min with sleep at night because patient has been evaluated in the hospital to have oxygen desaturation to 85% when on room air. Patient should follow up with primary care doctor for possible obstructive sleep apnea evaluation (as per chemistry manager the oxygen is [facility] approved and patient will get the oxygen delivered to home) Hypomagnesemia -serum magnesium 1.5 on admission -after repletion serum magnesium is 2.1 -serum magnesium 1.7 on 03/30/19 is 1.7, given IV and oral magnesium, serum magnesium is 1.9 on 03/31/19 -Patient should be on magnesium 400 mg daily and have serum magnesium levels followed by primary care doctor. Prescription electronically sent to [facility] [address] [place] [address] Leukocytosis -downtrended with IV fluids -Urine analysis is negative Chronic kidney stage III with baseline creatinine ranging from 1.6 to 1.9 -renal function being monitored, creatinine has downtrended to 1.25 History of gout -no gout flare -Continue febuxostat History of benign prostatic hypertrophy -Continue Proscar. Gastroesophageal reflux disease -On proton pump inhibitor. History of cerebrovascular accident in the past -continue aspirin -PT/OT evaluations History of anemia -HGB downtrended with IV fluids. likely hemodilutional -Hgb stable as 9.1 on 03/29/19 and 03/30/19 -FOBT is negative -Patient should continue home dose iron supplements for anemia (Hgb on discharge is 10) Patient's son Luke Blanco [phone] Discharge Diagnosis near syncope/fall, orthostatic hypotension. Hypomagnesemia, elevated troponin, chronic kidney disease stage 3, suspected obstructive sleep apnea, anemia Discharge Instructions Patient is discharged from [facility] to Home with [facility] approved home health visits Patient will need to be on oxygen 2 liters/min with sleep at night because patient has been evaluated in the hospital to have oxygen desaturation to 85% when on room air. Patient should follow up with primary care doctor for possible obstructive sleep apnea evaluation (as per chemistry manager the oxygen is [facility] approved and patient will get the oxygen delivered to home) Patient may hold home dose Lasix (Furosemide) 20 mg until follow up with primary care doctor Patient should be on magnesium 400 mg daily and have serum magnesium levels followed by primary care doctor. Prescription electronically sent to [facility] [address], [place] [id number] Patient should be on midodrine 5 mg three times a day and have blood pressures in different standing, sitting, and laying down checked by primary care doctor. [facility] [address] [place] [address] Patient has been counseled on slowly getting up from sitting to standing positions or when changing positions from laying down to sitting up Patient should continue home dose iron supplements for anemia (Hgb on discharge is 10) Follow with [facility] primary care 04/03/2019 9:20 AM Provider Estefani Manley PA-C [facility] 07/16/2019 8:00 AM Provider Kendall Barraza Jr., PA-C [facility] Total Time Total Time Spent Total Time Spent (In Minutes): 40 minutes Total Time Includes: Examination of the Patient, Discharge Planning, Medication Reconciliation and Communication With Other Providers Discharge Plan Discharge Items Patient Disposition: Home - Home Health Services Reason For Visit: FALL,NEAR SYNCOPE,ORTHOSTATIC HYPOTENSION/ Discharge Diagnosis: near syncope/fall, orthostatic hypotension. Hypomagnesemia, elevated troponin, chronic kidney disease stage 3, suspected obstructive sleep apnea, anemia Condition: Fair Discharge Goals: Improve disease control Activity: Per 'Additional Instructions' section Non-emergency contact: Primary Care Provider Call non-emergency contact if: you have any medication questions Follow-up/Referrals: Kendall Barraza PA-C [Primary Care Provider] - Diet: Heart Healthy Addtl Provider Instructions: Patient is discharged from [facility] to Home with [facility] approved home health visits Patient will need to be on oxygen 2 liters/min with sleep at night because patient has been evaluated in the hospital to have oxygen desaturation to 85% when on room air. Patient should follow up with primary care doctor for possible obstructive sleep apnea evaluation (as per chemistry manager the oxygen is [facility] approved and patient will get the oxygen delivered to home) Patient may hold home dose Lasix (Furosemide) 20 mg until follow up with primary care doctor Patient should be on magnesium 400 mg daily and have serum magnesium levels followed by primary care doctor. Prescription electronically sent to [facility] [address] [place] [address] Patient should be on midodrine 5 mg three times a day and have blood pressures in different standing, sitting, and laying down checked by primary care doctor. [facility] [address] [place] [address] Patient has been counseled on slowly getting up from sitting to standing positions or when changing positions from laying down to sitting up Patient should continue home dose iron supplements for anemia (Hgb on discharge is 10) Follow with [facility] primary care 04/03/2019 9:20 AM Provider Estefani Manley PA-C Department [facility] 07/16/2019 8:00 AM Provider Kendall Barraza Jr., PA-C [facility] Prescriptions: New magnesium oxide 400 mg (241.3 mg magnesium) Tablet 400 mg PO QAM 10 Days Qty: 10 RF: 0 midodrine 5 mg tablet 5 mg PO TID@0800,1200,1700 10 Days Qty: 30 RF: 0 Continued omeprazole 20 mg Tablet,Delayed Release (Dr/Ec) 20 mg PO QAM RF: 0 metoprolol tartrate 50 mg Tablet 25 mg PO QAM RF: 0 febuxostat 40 mg Tablet 80 mg PO AMPM RF: 0 nifedipine 30 mg Tablet Extended Release 24hr 30 mg PO QAM RF: 0 hydroxyzine HCl 10 mg Tablet 20 mg PO HS RF: 0 finasteride 5 mg Tablet 5 mg PO QPM RF: 0 PreserVision Lutein 226 mg-200 unit -5 mg-0.8 mg Capsule 2 cap PO AMPM RF: 0 Ensure Liquid 3 ea PO DAILY RF: 0 ferrous sulfate 325 mg (65 mg iron) Tablet 325 mg PO QAM RF: 0 aspirin 81 mg Tablet,Delayed Release (Dr/Ec) 81 mg PO QAM RF: 0 cholecalciferol (vitamin D3) 1,000 unit Tablet 1,000 unit PO DAILY RF: 0 loperamide 2 mg Tablet 2 mg PO QAM RF: 0 Discontinued furosemide 20 mg Tablet 20 mg PO QAM RF: 0 Stand-Alone Forms: [facility] Discharge Orders: Discharge Order (Routine); Ordered 03/31/19 Ordered By: Servando Live Admission Data Admit Date/Time: 03/30/19 10:29 Attending Provider: Servando Live Admit Provider: Jose Daniel Basurto Primary Care Provider: Kendall Barraza Other Providers: Jose Daniel Basurto ; Geronimo Barker ; Zen Moreno ; Bebeto Downey ; Josemanuel Marcus ; Alexis Lam ; Luke Cline ; Zoey Lopez ; Ebony Angulo Service: Telemetry
== END 2019-03-31 11:36 | disposition home health service (06) | DRG 312 ==
LOC: 2E 19:19 → ED 19:19 → SUATTDRO 22:03 → 2E 22:27